=== PATIENT | male | born 1960 | race Caucasian/White ===

== ENCOUNTER → 2019-09-18 | Outpatient (CLI) | payer OTHER | LOC: HYPER 09:14 | DX: T81.31XA Disruption of external operation (surgical) wound, not elsewhere classified, initial encounter (principal); E10.622 Type 1 diabetes mellitus with other skin ulcer; L98.491 Non-pressure chronic ulcer of skin of other sites limited to breakdown of skin; I87.2 Venous insufficiency (chronic) (peripheral); E10.40 Type 1 diabetes mellitus with diabetic neuropathy, unspecified; I48.91 Unspecified atrial fibrillation; E10.22 Type 1 diabetes mellitus with diabetic chronic kidney disease; I13.0 Hypertensive heart and chronic kidney disease with heart failure and stage 1 through stage 4 chronic kidney disease, or unspecified chronic kidney disease; I50.9 Heart failure, unspecified; N18.3 Chronic kidney disease, stage 3 (moderate); F32.9 Major depressive disorder, single episode, unspecified; M10.9 Gout, unspecified; E78.5 Hyperlipidemia, unspecified; M19.90 Unspecified osteoarthritis, unspecified site; G83.9 Paralytic syndrome, unspecified; E66.01 Morbid (severe) obesity due to excess calories; Z68.43 Body mass index [BMI] 50.0-59.9, adult; Y83.8 Other surgical procedures as the cause of abnormal reaction of the patient, or of later complication, without mention of misadventure at the time of the procedure; Y92.89 Other specified places as the place of occurrence of the external cause ==

== ENCOUNTER → 2019-10-02 | Outpatient (CLI) | payer OTHER | LOC: HYPER 08:35 | DX: T81.31XD Disruption of external operation (surgical) wound, not elsewhere classified, subsequent encounter (principal); E10.622 Type 1 diabetes mellitus with other skin ulcer; L98.492 Non-pressure chronic ulcer of skin of other sites with fat layer exposed; L40.50 Arthropathic psoriasis, unspecified; E10.22 Type 1 diabetes mellitus with diabetic chronic kidney disease; I13.0 Hypertensive heart and chronic kidney disease with heart failure and stage 1 through stage 4 chronic kidney disease, or unspecified chronic kidney disease; N18.3 Chronic kidney disease, stage 3 (moderate); I50.9 Heart failure, unspecified; E10.40 Type 1 diabetes mellitus with diabetic neuropathy, unspecified; E78.5 Hyperlipidemia, unspecified; E66.01 Morbid (severe) obesity due to excess calories; E83.59 Other disorders of calcium metabolism; G47.33 Obstructive sleep apnea (adult) (pediatric); I48.91 Unspecified atrial fibrillation; I87.2 Venous insufficiency (chronic) (peripheral); K74.60 Unspecified cirrhosis of liver; M35.3 Polymyalgia rheumatica; M19.90 Unspecified osteoarthritis, unspecified site; M10.9 Gout, unspecified; F32.9 Major depressive disorder, single episode, unspecified; Z68.43 Body mass index [BMI] 50.0-59.9, adult; Y83.8 Other surgical procedures as the cause of abnormal reaction of the patient, or of later complication, without mention of misadventure at the time of the procedure ==

== ENCOUNTER → 2019-10-16 | Outpatient (CLI) | payer OTHER | LOC: HYPER 08:46 | DX: T81.31XD Disruption of external operation (surgical) wound, not elsewhere classified, subsequent encounter (principal); E10.622 Type 1 diabetes mellitus with other skin ulcer; L98.492 Non-pressure chronic ulcer of skin of other sites with fat layer exposed; E66.01 Morbid (severe) obesity due to excess calories; E83.59 Other disorders of calcium metabolism; E83.50 Unspecified disorder of calcium metabolism; E10.40 Type 1 diabetes mellitus with diabetic neuropathy, unspecified; E10.22 Type 1 diabetes mellitus with diabetic chronic kidney disease; I13.0 Hypertensive heart and chronic kidney disease with heart failure and stage 1 through stage 4 chronic kidney disease, or unspecified chronic kidney disease; N18.3 Chronic kidney disease, stage 3 (moderate); I50.9 Heart failure, unspecified; E78.5 Hyperlipidemia, unspecified; G47.33 Obstructive sleep apnea (adult) (pediatric); I48.91 Unspecified atrial fibrillation; K74.60 Unspecified cirrhosis of liver; L40.50 Arthropathic psoriasis, unspecified; M10.9 Gout, unspecified; M35.3 Polymyalgia rheumatica; M19.90 Unspecified osteoarthritis, unspecified site; F32.9 Major depressive disorder, single episode, unspecified; Z68.43 Body mass index [BMI] 50.0-59.9, adult; Y83.8 Other surgical procedures as the cause of abnormal reaction of the patient, or of later complication, without mention of misadventure at the time of the procedure ==

== ENCOUNTER → 2019-10-30 | Outpatient (CLI) | payer OTHER | LOC: HYPER 08:38 | DX: T81.31XD Disruption of external operation (surgical) wound, not elsewhere classified, subsequent encounter (principal); E10.622 Type 1 diabetes mellitus with other skin ulcer; L98.492 Non-pressure chronic ulcer of skin of other sites with fat layer exposed; E10.40 Type 1 diabetes mellitus with diabetic neuropathy, unspecified; E83.59 Other disorders of calcium metabolism; I48.91 Unspecified atrial fibrillation; E10.22 Type 1 diabetes mellitus with diabetic chronic kidney disease; I13.2 Hypertensive heart and chronic kidney disease with heart failure and with stage 5 chronic kidney disease, or end stage renal disease; I50.9 Heart failure, unspecified; N18.3 Chronic kidney disease, stage 3 (moderate); G47.33 Obstructive sleep apnea (adult) (pediatric); L40.50 Arthropathic psoriasis, unspecified; E66.01 Morbid (severe) obesity due to excess calories; F32.9 Major depressive disorder, single episode, unspecified; Z68.43 Body mass index [BMI] 50.0-59.9, adult; Y83.8 Other surgical procedures as the cause of abnormal reaction of the patient, or of later complication, without mention of misadventure at the time of the procedure ==

== ENCOUNTER → 2019-11-13 | Outpatient (CLI) | payer OTHER | LOC: HYPER 08:45 | DX: T81.31XD Disruption of external operation (surgical) wound, not elsewhere classified, subsequent encounter (principal); E10.622 Type 1 diabetes mellitus with other skin ulcer; L98.492 Non-pressure chronic ulcer of skin of other sites with fat layer exposed; I87.2 Venous insufficiency (chronic) (peripheral); E10.40 Type 1 diabetes mellitus with diabetic neuropathy, unspecified; E83.59 Other disorders of calcium metabolism; G83.9 Paralytic syndrome, unspecified; I48.91 Unspecified atrial fibrillation; E10.22 Type 1 diabetes mellitus with diabetic chronic kidney disease; I13.0 Hypertensive heart and chronic kidney disease with heart failure and stage 1 through stage 4 chronic kidney disease, or unspecified chronic kidney disease; I50.9 Heart failure, unspecified; N18.9 Chronic kidney disease, unspecified; M10.9 Gout, unspecified; E78.5 Hyperlipidemia, unspecified; L40.50 Arthropathic psoriasis, unspecified; E66.01 Morbid (severe) obesity due to excess calories; G47.33 Obstructive sleep apnea (adult) (pediatric); F32.9 Major depressive disorder, single episode, unspecified; Z68.43 Body mass index [BMI] 50.0-59.9, adult; Y83.8 Other surgical procedures as the cause of abnormal reaction of the patient, or of later complication, without mention of misadventure at the time of the procedure ==

== ENCOUNTER → 2019-11-27 | Outpatient (CLI) | payer OTHER | LOC: HYPER 08:55 | DX: T81.31XD Disruption of external operation (surgical) wound, not elsewhere classified, subsequent encounter (principal); E10.622 Type 1 diabetes mellitus with other skin ulcer; L98.492 Non-pressure chronic ulcer of skin of other sites with fat layer exposed; S80.811A Abrasion, right lower leg, initial encounter; S51.812D Laceration without foreign body of left forearm, subsequent encounter; E83.59 Other disorders of calcium metabolism; E10.40 Type 1 diabetes mellitus with diabetic neuropathy, unspecified; I87.2 Venous insufficiency (chronic) (peripheral); G83.9 Paralytic syndrome, unspecified; E10.22 Type 1 diabetes mellitus with diabetic chronic kidney disease; I50.9 Heart failure, unspecified; N18.3 Chronic kidney disease, stage 3 (moderate); I48.91 Unspecified atrial fibrillation; M10.9 Gout, unspecified; E78.5 Hyperlipidemia, unspecified; I13.0 Hypertensive heart and chronic kidney disease with heart failure and stage 1 through stage 4 chronic kidney disease, or unspecified chronic kidney disease; L40.50 Arthropathic psoriasis, unspecified; G47.33 Obstructive sleep apnea (adult) (pediatric); E66.01 Morbid (severe) obesity due to excess calories; F32.9 Major depressive disorder, single episode, unspecified; Z68.43 Body mass index [BMI] 50.0-59.9, adult; Y83.8 Other surgical procedures as the cause of abnormal reaction of the patient, or of later complication, without mention of misadventure at the time of the procedure; X58.XXXD Exposure to other specified factors, subsequent encounter; X58.XXXA Exposure to other specified factors, initial encounter; Y93.89 Activity, other specified; Y92.89 Other specified places as the place of occurrence of the external cause; Y99.8 Other external cause status ==

== ENCOUNTER → 2019-12-11 | Outpatient (CLI) | payer OTHER | LOC: HYPER 08:52 | DX: T81.31XD Disruption of external operation (surgical) wound, not elsewhere classified, subsequent encounter (principal); E10.622 Type 1 diabetes mellitus with other skin ulcer; L98.492 Non-pressure chronic ulcer of skin of other sites with fat layer exposed; E83.59 Other disorders of calcium metabolism; L40.50 Arthropathic psoriasis, unspecified; I87.2 Venous insufficiency (chronic) (peripheral); G83.9 Paralytic syndrome, unspecified; I48.91 Unspecified atrial fibrillation; E10.22 Type 1 diabetes mellitus with diabetic chronic kidney disease; I13.0 Hypertensive heart and chronic kidney disease with heart failure and stage 1 through stage 4 chronic kidney disease, or unspecified chronic kidney disease; I50.9 Heart failure, unspecified; N18.3 Chronic kidney disease, stage 3 (moderate); E10.40 Type 1 diabetes mellitus with diabetic neuropathy, unspecified; M10.9 Gout, unspecified; E78.5 Hyperlipidemia, unspecified; K74.60 Unspecified cirrhosis of liver; G47.33 Obstructive sleep apnea (adult) (pediatric); E66.01 Morbid (severe) obesity due to excess calories; F32.9 Major depressive disorder, single episode, unspecified; Z68.43 Body mass index [BMI] 50.0-59.9, adult; Y83.8 Other surgical procedures as the cause of abnormal reaction of the patient, or of later complication, without mention of misadventure at the time of the procedure ==

== ENCOUNTER → 2019-12-27 | Outpatient (CLI) | payer OTHER | LOC: HYPER 08:49 | DX: T81.31XD Disruption of external operation (surgical) wound, not elsewhere classified, subsequent encounter (principal); E10.622 Type 1 diabetes mellitus with other skin ulcer; L98.492 Non-pressure chronic ulcer of skin of other sites with fat layer exposed; L84 Corns and callosities; E10.22 Type 1 diabetes mellitus with diabetic chronic kidney disease; I13.0 Hypertensive heart and chronic kidney disease with heart failure and stage 1 through stage 4 chronic kidney disease, or unspecified chronic kidney disease; N18.3 Chronic kidney disease, stage 3 (moderate); I50.9 Heart failure, unspecified; E10.40 Type 1 diabetes mellitus with diabetic neuropathy, unspecified; E83.59 Other disorders of calcium metabolism; E83.50 Unspecified disorder of calcium metabolism; E66.01 Morbid (severe) obesity due to excess calories; E78.5 Hyperlipidemia, unspecified; I48.91 Unspecified atrial fibrillation; I87.2 Venous insufficiency (chronic) (peripheral); G47.33 Obstructive sleep apnea (adult) (pediatric); L40.50 Arthropathic psoriasis, unspecified; K74.60 Unspecified cirrhosis of liver; M10.9 Gout, unspecified; M35.3 Polymyalgia rheumatica; M19.90 Unspecified osteoarthritis, unspecified site; F32.9 Major depressive disorder, single episode, unspecified; Z68.43 Body mass index [BMI] 50.0-59.9, adult; Y83.8 Other surgical procedures as the cause of abnormal reaction of the patient, or of later complication, without mention of misadventure at the time of the procedure ==

== ENCOUNTER → 2020-01-08 | Outpatient (CLI) | payer OTHER | LOC: HYPER 08:43 | DX: T81.31XD Disruption of external operation (surgical) wound, not elsewhere classified, subsequent encounter (principal); E10.622 Type 1 diabetes mellitus with other skin ulcer; L98.492 Non-pressure chronic ulcer of skin of other sites with fat layer exposed; L84 Corns and callosities; E83.59 Other disorders of calcium metabolism; E83.50 Unspecified disorder of calcium metabolism; E66.01 Morbid (severe) obesity due to excess calories; E10.40 Type 1 diabetes mellitus with diabetic neuropathy, unspecified; E10.22 Type 1 diabetes mellitus with diabetic chronic kidney disease; I13.0 Hypertensive heart and chronic kidney disease with heart failure and stage 1 through stage 4 chronic kidney disease, or unspecified chronic kidney disease; N18.3 Chronic kidney disease, stage 3 (moderate); I50.9 Heart failure, unspecified; I48.91 Unspecified atrial fibrillation; G47.33 Obstructive sleep apnea (adult) (pediatric); E78.5 Hyperlipidemia, unspecified; K74.60 Unspecified cirrhosis of liver; L40.50 Arthropathic psoriasis, unspecified; M10.9 Gout, unspecified; M35.3 Polymyalgia rheumatica; M19.90 Unspecified osteoarthritis, unspecified site; F32.9 Major depressive disorder, single episode, unspecified; Z68.43 Body mass index [BMI] 50.0-59.9, adult; Y83.8 Other surgical procedures as the cause of abnormal reaction of the patient, or of later complication, without mention of misadventure at the time of the procedure ==

== ENCOUNTER → 2020-01-15 | Outpatient (CLI) | payer OTHER | LOC: HYPER 08:52 | DX: T81.31XD Disruption of external operation (surgical) wound, not elsewhere classified, subsequent encounter (principal); E10.622 Type 1 diabetes mellitus with other skin ulcer; L98.492 Non-pressure chronic ulcer of skin of other sites with fat layer exposed; E10.40 Type 1 diabetes mellitus with diabetic neuropathy, unspecified; I87.2 Venous insufficiency (chronic) (peripheral); E83.59 Other disorders of calcium metabolism; L40.50 Arthropathic psoriasis, unspecified; I48.91 Unspecified atrial fibrillation; E10.22 Type 1 diabetes mellitus with diabetic chronic kidney disease; I13.0 Hypertensive heart and chronic kidney disease with heart failure and stage 1 through stage 4 chronic kidney disease, or unspecified chronic kidney disease; I50.9 Heart failure, unspecified; N18.3 Chronic kidney disease, stage 3 (moderate); M10.9 Gout, unspecified; E78.5 Hyperlipidemia, unspecified; E66.01 Morbid (severe) obesity due to excess calories; G47.33 Obstructive sleep apnea (adult) (pediatric); Z68.43 Body mass index [BMI] 50.0-59.9, adult; Y83.8 Other surgical procedures as the cause of abnormal reaction of the patient, or of later complication, without mention of misadventure at the time of the procedure ==

== ENCOUNTER → 2020-01-22 | Outpatient (CLI) | payer OTHER ==
[~2020-01-22] MED LIST: ALLOPURINOL 10100 M3 PO; CARVEDILOL12.5 MG PO; DAKIN'S473 ML TOP; DEMADEX20 MG PO; DULOXETINE HCL60 MG PO; ELIQUIS5 MG PO; FLAGYL500 M1 PO; FLAGYL500 M1 TOP; GENTIAN VIOLET TOP; LANTUS SUBQ; LIDOCAINE 2%2 %/5 GM TOP; LIPITOR 20 MG T20 M1 PO; METOLAZONE 5 MG5 MG PO; NEURONTIN 300M300 M2 PO; NORCO 5-325 TA1 EAC1 PO; PENICILLIN VK500 MG PO; PEPCID AC20 MG PO; PREDNISONE 5 MG5 M1 PO; VASHE WOUND TH475 ML TOP; VSL#3 CAPSULE1 EACH PO
== END ==
LOC: HYPER 09:01
DX: T81.31XD Disruption of external operation (surgical) wound, not elsewhere classified, subsequent encounter (principal); E10.622 Type 1 diabetes mellitus with other skin ulcer; L98.492 Non-pressure chronic ulcer of skin of other sites with fat layer exposed; I87.2 Venous insufficiency (chronic) (peripheral); E83.59 Other disorders of calcium metabolism; E10.40 Type 1 diabetes mellitus with diabetic neuropathy, unspecified; G83.9 Paralytic syndrome, unspecified; I48.91 Unspecified atrial fibrillation; E10.22 Type 1 diabetes mellitus with diabetic chronic kidney disease; I13.0 Hypertensive heart and chronic kidney disease with heart failure and stage 1 through stage 4 chronic kidney disease, or unspecified chronic kidney disease; I50.9 Heart failure, unspecified; N18.3 Chronic kidney disease, stage 3 (moderate); M10.9 Gout, unspecified; E78.5 Hyperlipidemia, unspecified; L40.50 Arthropathic psoriasis, unspecified; E66.01 Morbid (severe) obesity due to excess calories; F32.9 Major depressive disorder, single episode, unspecified; Z68.43 Body mass index [BMI] 50.0-59.9, adult; Y83.8 Other surgical procedures as the cause of abnormal reaction of the patient, or of later complication, without mention of misadventure at the time of the procedure; G47.33 Obstructive sleep apnea (adult) (pediatric)

== ENCOUNTER 2020-01-23 10:49 | Inpatient (IN) | payer OTHER ==
[~2020-01-23] VITALS: Ht 175.3 cm; Wt 154.2 kg
--- NOTE | ~2020-01-23 | O ---
[address] [address] OPERATIVE REPORT Name: VINOD LAW Room #: 357-P ADM IN M.R.#: [id number] Admission: 01/23/20 Attend Phys: Nash Helton MD Discharge: Date of : 64 Report #: [id number] THIS REPORT FOR: cc: FAM - No family physician/PCP RADHA - No family physician/PCP Ion Smith MD ~ CC: Ion Gray [facility] physician/PCP Javi Helton DATE OF SERVICE: 01/25/2020 PROCEDURES PERFORMED: 1. Sharp excisional debridement of many right torso/pannus calciphylaxis wounds with Misonix. 2. Placement of wound VAC. PREOPERATIVE DIAGNOSES: 1. 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 2. Atrial fibrillation, on Eliquis. 3. History of pulmonary embolism. 4. Congestive heart failure. 5. Obstructive sleep apnea. 6. History of morbid obesity. 7. Chronic kidney disease. 8. Diabetes mellitus. 9. Hypertension. POSTOPERATIVE DIAGNOSES: 1. 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 2. Atrial fibrillation, on Eliquis. 3. History of pulmonary embolism. 4. Congestive heart failure. 5. Obstructive sleep apnea. 6. History of morbid obesity. 7. Chronic kidney disease. 8. Diabetes mellitus. 9. Hypertension. SURGEON: Dr. Smith. BRANCH COORDINATOR: None. ANESTHESIA: General. [address] [place] [address] OPERATIVE REPORT Name: VINOD LAW Room #: 357-P [facility] IN .R.#: [id number] Admission: 01/23/20 Attend Phys: Nash Helton MD Discharge: Date of : 64 Report #: [id number] ESTIMATED BLOOD LOSS: Less than 50 mL. URINE OUTPUT: Not measured. COMPLICATIONS: None. SPECIMENS: Right flank wound, sent for histology and for cultures. FINDINGS: All wounds are along the right pannus. 1. Right medial wound is 12 cm x 5 cm x 3 cm, stage 3, down to subcutaneous fat. 2. Pubic wound 4 cm x 2 cm x 0.5 cm, stage 3, down to subcutaneous fat. 3. Medial wound was 8.5 cm x 4 cm x 1.5 cm, stage 3, down to subcutaneous fat. 4. Right lateral wound 15 cm x 4 cm x 0.5 cm, stage 3, down to subcutaneous fat. 5. Right lateral cephalad wound is 5 cm x 1.5 cm x 0.5 cm, stage 3, down to subcutaneous fat. INDICATIONS FOR PROCEDURE: The patient is a 59-year-old gentleman with many chronic calciphylaxis wounds along his torso. The patient had been seeing the wound clinic. The patient was admitted for wound debridement and possible grafting. The risks, benefits and alternatives of the procedure were discussed with the patient. The risks discussed included but were not limited to the risk of bleeding, infection, worsening of the wound. He understood the wound to be larger likely, understood that we might possibly graft the wounds. He understood that there will be a wound VAC afterwards. He understood the risk of anesthesia including heart, lung and neurologic type complications, and the risk of . The patient had the opportunity to ask questions. All questions were answered to the best of my ability. At the end of the discussion, he wished to proceed with surgery. DESCRIPTION OF PROCEDURE: After informed consent was obtained as above, the patient was taken to the operating room and placed in supine position. General anesthesia was induced. Preprocedure antibiotics were administered. His anterior and right lateral abdomen and flank were prepped and draped in the usual sterile fashion. A timeout was performed. Electrocautery was used to carve off the thick dark eschar along the right flank lateral wound. The Misonix wound device was then used to debride all the soft necrotic nonviable tissue of all wound beds. Hemostasis was obtained using a mixture of electrocautery as well as a Vicryl suture. The patient was meticulously inspected, the wound beds were measured. The hemostasis was obtained. The wound VAC was then applied in the standard fashion. There was a good seal [address] [address] OPERATIVE REPORT Name: LAWVINOD Room #: 357-P [facility] IN M.R.#: [id number] Admission: 01/23/20 Attend Phys: Nash Helton MD Discharge: Date of : 64 Report #: [id number] present at the end of the procedure. The patient tolerated the procedure well. There were no adverse events throughout the course of the procedure. By: [id number] Ion Smith MD /nt
[2020-01-23 10:51] VITALS: BP 128/66
[2020-01-23 11:37] LABS: ABSOLUTE NEUTROPHILS 8.7 thou/uL (1.4-8.2); BASOPHILS 0.6 % (0.0-2.0); HEMATOCRIT 26.5 % (42.0-52.0); HEMOGLOBIN 8.9 gm/dL (14.0-18.0); LYMPHOCYTES 9.4 % (24.0-44.0); MCH 32.6 pg (26.0-34.0); MCHC 33.4 g/dL (28.0-37.0); MCV 97.4 fL (80.0-100.0); MONOCYTES 9.7 % (1.0-8.0); PLATELET COUNT 182 thou/uL (150-400); POLYS 79.3 % (36.0-66.0); RBC 2.72 mil/uL (4.50-6.00); RDW 15.1 % (10.5-14.5)
[2020-01-23 12:01] LABS: URINE BILIRUBIN NEGATIVE (Negative); URINE BLOOD TRACE (Negative); URINE CLARITY CLEAR; URINE COLOR YELLOW; URINE GLUCOSE-RANDOM* NEGATIVE (Negative); URINE KETONES NEGATIVE (Negative); URINE LEUKOCYTES-REFLEX TRACE (Negative); URINE NITRITE-REFLEX NEGATIVE (Negative); URINE PROTEIN (DIPSTICK) NEGATIVE (Negative); URINE UROBILINOGEN 0.2 E.U./dl (0.2-1.0)
[2020-01-23 12:03] LABS: ANION GAP 7 mmol/L (7-16); BUN 70 mg/dL (7-18); CALCIUM 8.8 mg/dL (8.5-10.1); CHLORIDE 95 mmol/L (98-107); CO2 29 mmol/L (21-32); CREATININE 1.5 mg/dL (0.7-1.3); GLUCOSE 197 mg/dL (74-106); POTASSIUM 3.1 mmol/L (3.5-5.1); SODIUM 131 mmol/L (136-145)
[2020-01-23 12:05] LABS: ALBUMIN 2.4 g/dL (3.4-5.0); DIRECT BILIRUBIN < 0.1 mg/dL (<0.1-0.2); SGOT 35 U/L (15-37); SGPT 28 U/L (30-65); TOTAL BILIRUBIN 0.5 mg/dL (<0.1-1.0); TOTAL PROTEIN 7.6 g/dL (6.4-8.2)
[2020-01-23 14:15] VITALS: BP 100/77
[2020-01-23 16:13] VITALS: BP 122/58
[2020-01-23 16:37] VITALS: BP 116/98
[2020-01-23] MEDS ORDERED: CARVEDILOL12.5 MG PO (18:21)
[2020-01-23] MEDS ORDERED: VSL#3 CAPSULE1 EACH PO (18:22)
[2020-01-23] MEDS ORDERED: LIPITOR 20 MG T20 M1 PO (18:25)
[2020-01-23] MEDS ORDERED: PEPCID AC20 MG PO (18:27)
[2020-01-23] MEDS ORDERED: ALLOPURINOL 10100 M3 PO (18:28)
[2020-01-23] MEDS ORDERED: METOLAZONE 5 MG5 MG PO (18:29)
[2020-01-23] MEDS ORDERED: GENTIAN VIOLET TOP (18:32)
[2020-01-23] MEDS ORDERED: DAKIN'S473 ML TOP (18:35)
[2020-01-23] MEDS ORDERED: FLAGYL500 M1 TOP (18:39)
[2020-01-23] MEDS ORDERED: VASHE WOUND TH475 ML TOP (18:42)
[2020-01-23] MEDS ORDERED: FLAGYL500 M1 PO ×2 (18:44→18:47)
[2020-01-23] MEDS ORDERED: PENICILLIN VK500 MG PO ×2 (18:51→18:53)
[2020-01-23] MEDS ORDERED: LIDOCAINE 2%2 %/5 GM TOP (19:29)
[2020-01-23] MEDS ORDERED: NORCO 5-325 TA1 EAC1 PO (19:30)
[2020-01-23] MEDS ORDERED: PREDNISONE 5 MG5 M1 PO (19:35)
[2020-01-23] MEDS ORDERED: DULOXETINE HCL60 MG PO (19:36)
[2020-01-23] MEDS ORDERED: DEMADEX20 MG PO (19:38)
[2020-01-23] MEDS ORDERED: NEURONTIN 300M300 M2 PO (19:39)
[2020-01-23] MEDS ORDERED: LANTUS SUBQ (19:43)
[2020-01-23] MEDS ORDERED: ELIQUIS5 MG PO (19:45)
--- NOTE | 2020-01-23 19:50 | NUR ---
1800 PT ADMITTED TO 3WEST ROOM 357, PT ALERT AND ORIENTED X4, DENIEA NAUSEA, VOMITTING AND CHEST PAIN. PT COMPLAIN OF RIGHT SIDE LOWER ABD PAIN, PAIN MED GIVEN PER ORDER. PT ORIENTED TO ROOM, FALL CONSENT SIGNED. PT ADMISSION PAPER WORK COMPLETED. PT STATES NOT KNOWING EXACTLY WHAT MEDICATION HE TAKES AND AND THE WOUND DOCTOR SHOULD HAVE A COPY. DR. NUR IN ROOM AND HE PROVIDED PT UPDATED MEDICATION LIST. LIST ENTERED AND REVIEWED. VITALS SIGNS COMPLETED. BLOOD SUGAR WITHIN NORMAL LIMIT NO INSULIN REQUIRED. PT DENIES ANY NEEDS AT THE MOMENT. REPORT GIVEN TO GRACIE GAUTHIER NURSE.
[2020-01-23 20:53] VITALS: BP 101/55
[2020-01-24 03:49] VITALS: BP 140/82
--- NOTE | 2020-01-24 04:29 | NUR ---
ASSUMED CARE OF PATIENT AT 1900. PATIENT ON ENHANCED PRECAUTIONS FOR PENDING COVID RESULTS. PATIENT UP AD JOHNATHAN ON 3L ON OXYGEN VIA NC, WHICH PATIENT TYPICALLY WEARS AT HOME. DOCUMENTED WOUNDS AND COMPLETED WOUND CARE ON MULTIPLE ABDOMINAL WOUNDS ORDERED. PATIENT REPORTED PAIN IN ABDOMEN FREQUENTLY AND REQUEST PRN NORCO APPROXIMATELY EVERY 4 TO 5 HOURS. ADMINISTERED NORCO ORDERED.
[2020-01-24 06:29] LABS: ABSOLUTE NEUTROPHILS 7.3 thou/uL (1.4-8.2); BASOPHILS 0.5 % (0.0-2.0); EOSINOPHILS 1.7 % (0.0-3.0); HEMATOCRIT 26.2 % (42.0-52.0); HEMOGLOBIN 8.9 gm/dL (14.0-18.0); LYMPHOCYTES 10.5 % (24.0-44.0); MCH 32.9 pg (26.0-34.0); MCV 96.9 fL (80.0-100.0); MONOCYTES 9.2 % (1.0-8.0); PLATELET COUNT 172 thou/uL (150-400); POLYS 78.1 % (36.0-66.0); RDW 15.1 % (10.5-14.5); WBC 9.3 thou/uL (4.0-11.0)
[2020-01-24 06:45] LABS: CALCIUM 8.8 mg/dL (8.5-10.1); CREATININE 1.2 mg/dL (0.7-1.3); MAGNESIUM 1.7 mg/dL (1.8-2.4); POTASSIUM 3.5 mmol/L (3.5-5.1)
[2020-01-24 06:50] LABS: % SATURATION 13 % (20-39); IRON 24 ug/dL (65-175); TIBC 188 ug/dL (250-450)
[2020-01-24 06:59] LABS: TSH 2.534 uIU/mL (0.358-3.740)
[2020-01-24 08:00] VITALS: BP 152/92
--- NOTE | 2020-01-24 09:07 | NUR ---
ASSESSMENT: CM REVIEWED CHART AND SPOKE WITH PATIENT VIA THE PHONE. PT WAS ADMITTED DUE TO NON HEALING ABDOMINAL WOUNDS. PT REPORTS THAT HE LIVES IN AN APT WITH HIS BROTHER. PT IS CURRENTLY ON SERVICES WITH [facility] . CM NOTIFIED THEM OF PATIENTS ADMISSION AND FAXED CLINICAL. PT REPORTS THAT HE AMBULATES INDEPENDENTLY BUT DOES HAVE A CANE AT HOME. PT REPORTS THAT HE ALSO HAS OXYGEN ARRANGED AT HOME AND IS ON 3L AT HIS BASELINE. OXYGEN IS SUPPLIED THROUGH [facility]. PT ALSO HAS A BIPAP AT HOME. PT REPORTS HE HAS NO STEPS TO ENTER HIS APT. PT REPORTS HAVING A SHOWER CHAIR BUT STATES HE IS PRETTY INDEPENDENT. PT IS IN ISOLATION AND BEING TESTED FOR COVID 19-RESULTS ARE PENDING. PENDING RESULTS OF COVID PT IS TO HAVE AN EXCISIONAL DEBRIDEMENT. CM WILL CONTINUE TO FOLLOW TO ASSIST NEEDED.
--- NOTE | 2020-01-24 10:44 | NUR ---
Assess due to BMI 50.2, extreme class III obesity. Admitted with abdominal wall and perineal wounds; calciphylaxis. NPO for excisional debridement. Hx of CHF, DM. BG 117-176, BUN 45. Pending COVID 19 r/o. Recommend advance diet when medically able to carb controlled, 2g Na. Available if pt has questions regarding diet. Otherwise, encourage high protein food choices and pt is considered low nutrition risk
--- NOTE | 2020-01-24 15:10 | HC ---
[facility] [place] [address] CONSULTATION Name: VINOD LAW Room #: 357-P ADM IN M.R.#: [id number] Admission: 01/23/20 Attend Phys: Nash Helton MD Discharge: Date of : 64 Report #: [id number] THIS REPORT FOR: cc: FAM - No family physician/PCP RADHA - No family physician/PCP Ion Smith MD ~ CC: Ion Gray [facility] physician/PCP Javi Helton DATE OF SERVICE: 01/23/2020 REASON FOR CONSULTATION: Wounds. ASSESSMENT: Nonoliguric calciphylaxis wounds, torso. RECOMMENDATIONS: 1. Thank you for the consultation. I will follow along. 2. The patient's Eliquis has been held since Wednesday, per his verbal report. 3. Planning for sharp excisional debridement of wounds tomorrow with COVID results return. We will likely place a skin substitute graft and wound VAC as well. HISTORY OF PRESENT ILLNESS: The patient is a 59-year-old gentleman who has had torso wounds for approximately 1 year, they have been found to be due to nonoliguric calciphylaxis. The patient does have CKD; however, this has improved significantly. The patient has many other medical comorbidities. Some of the wounds have improved; however, some of the wounds have not, they are painful. He is ready to have been debrided. He has had cultures of them that have grown out Enterococcus in the past. PAST MEDICAL HISTORY: 1. Pulmonary embolism. 2. Atrial fibrillation, on Eliquis. 3. Congestive heart failure, had an echo within the last year per patient. 4. Obstructive sleep apnea. 5. Morbid obesity. 6. Chronic kidney disease. 7. Diabetes mellitus. 8. Hypertension. 9. Colon polyps. PAST SURGICAL HISTORY: 1. Left lower quadrant wound debridement. [facility] [address] [place] [address] CONSULTATION Name: LAWVINOD Room #: 357-P [facility] IN Daniella.#: [id number] Admission: 01/23/20 Attend Phys: Nash Helton MD Discharge: Date of : 64 Report #: [id number] 2. Colonoscopy. 3. Toe foreign body removal. SOCIAL HISTORY: Drinks 1 beer per week. Denies tobacco use. Denies recreational drug use. He is retired. He does job coaching youth sports. FAMILY HISTORY: Mother had breast cancer. Maternal grandfather had cancer of unknown type. REVIEW OF SYSTEMS: CONSTITUTIONAL: No fever. No chills. HEENT: Denies blurring of vision, double vision, headaches, hearing loss, sinus drainage or sore throat. Denies blurring of vision, double vision, headaches, hearing loss, sinus drainage or sore throat. CARDIOVASCULAR: See above and below. RESPIRATORY: See above and below. GASTROINTESTINAL: No nausea. No vomiting. No diarrhea. No Heartburn. No nausea. No vomiting. No diarrhea. No Heartburn. GENITOURINARY: See above and below. MUSCULOSKELETAL: No joint pain. No muscle pain. NEUROLOGICAL: Denies tremor, stroke or seizure. Denies tremor, stroke or seizure. HEMATOLOGIC / LYMPHATICS: Denies easy bruising, easy bleeding or enlarged lymph nodes. SKIN: See above and below. ENDOCRINE: No heat or cold intolerance PSYCHIATRIC: Denies depression, anxiety, or schizophrenia. PHYSICAL EXAMINATION: VITAL SIGNS: Temperature 37, pulse 100, BP 105/38, pulse oximetry 99% on room air. GENERAL: No apparent distress, alert and oriented x3. HEENT: PERRLA, EOMI, MMM, NCAT NECK: Supple. No LAD CARDIOVASCULAR: Regular rhythm and rate. Hemodynamically stable. Normal capillary refill. Regular rhythm and rate. Hemodynamically stable. Normal capillary refill. PULMONARY: Nonlabored. Clear to auscultation bilaterally ABDOMEN: Soft, morbidly obese, nontender. The patient has chronic wounds along his pannus from the left flank scattered all the way around towards the right flank. Starting in the left flank, he has a dry eschar wound approximately 3 x 5 cm. On the left anterior aspect of his pannus, he has a chronic appearing wound that has been previously debrided that has 1 x 1 cm dry eschar. On his right anterior, he has a large stage 3 white appearing ulcerative wound, he has a second one very similar just lateral to this and a third one lateral to that along his right flank. [address] [address] CONSULTATION Name: VINOD LAW Isidoro Room #: 357-P [facility] IN M.R.#: [id number] Admission: 01/23/20 Attend Phys: Nash Helton MD Discharge: Date of : 64 Report #: [id number] EXTREMITIES: Positive lower extremity edema with chronic skin changes consistent with hemosiderin deposition. SKIN: No rashes or bruises. PSYCHIATRIC: Normal mood and affect Normal mood and affect NEUROLOGICAL: Grossly intact. CN II-XII grossly intact. MUSCULOSKELETAL: 5/5 strength in upper extremities and lower extremities bilaterally LYMPHATICS: No cervical, inguinal, or supraclavicular lymphadenopathy. LABORATORY DATA: White blood count 11, hemoglobin 8.9, hematocrit 26.5, and platelets 182. Sodium 131, potassium 3.1, creatinine 1.5. Albumin 2.4. <ELECTRONICALLY SIGNED> By: Ion Smith MD 01/24/20 1510 1350 1422 Ion Smith MD /nt
--- NOTE | 2020-01-24 17:45 | NUR ---
VSS-AFEBRILE. LUNGS CLEAR/DIMINISHED IN ALL ANNA BILATERALLY. WEARS CPAP WITH 3L O2 BLEED WHEN NAPPING AND AT HS. SURGICAL DEBRIDEMENT OF ABDOMINAL WOUNDS RESCHEDULED FOR TOMORROW 01/25/[address] CHINO. DECLINED WOUND CARE FOR DAY SHIFT, PREFERS IT LATER, BEFORE BED. PAIN WELL CONTROLLED WITH IV AND PO PAIN MEDICATION. NO REPORTED N/V. AWAITING COVID 19 TEST RESULTS. OOB AD JOHNATHAN-STEADY ON FEET. CALLS APPROPRIATELY FOR ANY NEEDED ASSISTANCE.
[2020-01-24 19:27] VITALS: BP 110/71
--- NOTE | 2020-01-24 23:04 | NUR ---
ASSSUMED PT CARE AROUND 1930. AXOX4. INDEPENDENT WITH ADLs. WOUND CARE TO ABD GEN COMPLETED PER PT REQUEST. STOOL SAMPLE COLLECTED AND SENT DOWN. VSS. NO S/S ACUTE DISTRESS NOTED OR REPORTED AT THIS TIME. CARE TRANSFERRED TO ANOTHER RN.
--- NOTE | 2020-01-25 03:31 | NUR ---
Assumed pt care at 2300. Pt's A/OX4. Up ad cee in room w/o problems. VSS. Pt's covid-19 results back and negative, Kalyn LAMINATION BUILDER notified about results and if need to order a second test which she indicated she didn't think it was needed at this time but will follow-up with MD this morning. Pt updated about results and very happy. Pt medicated for pain PO/IV with relief reported. Has been NPO since midnight for possible debridement today. Remains on enhanced isolation. Calls approp for help. Resting quietly w/o any distress reported, CPAP in place. Will continue to monitor pt.
[2020-01-25 03:48] VITALS: BP 148/58
[2020-01-25 05:22] LABS: ALBUMIN 2.3 g/dL (3.4-5.0); CALCIUM 8.8 mg/dL (8.5-10.1); MAGNESIUM 1.6 mg/dL (1.8-2.4); POTASSIUM 4.1 mmol/L (3.5-5.1); TOTAL BILIRUBIN 0.8 mg/dL (<0.1-1.0); TOTAL PROTEIN 7.3 g/dL (6.4-8.2)
[2020-01-25 05:41] LABS: ABSOLUTE NEUTROPHILS 7.4 thou/uL (1.4-8.2); BASOPHILS 0.6 % (0.0-2.0); HEMATOCRIT 25.9 % (42.0-52.0); HEMOGLOBIN 8.8 gm/dL (14.0-18.0); LYMPHOCYTES 9.7 % (24.0-44.0); MCH 32.9 pg (26.0-34.0); MCHC 33.8 g/dL (28.0-37.0); MCV 97.5 fL (80.0-100.0); MONOCYTES 10.8 % (1.0-8.0); PLATELET COUNT 154 thou/uL (150-400); POLYS 76.9 % (36.0-66.0); RBC 2.66 mil/uL (4.50-6.00); WBC 9.7 thou/uL (4.0-11.0)
[2020-01-25 06:36] VITALS: BP 132/77
--- NOTE | 2020-01-25 13:42 | NUR ---
ON-GOING ASSESSMENT: PATIENTS COVID TESTING CAME BACK NEGATIVE. PLANS ARE FOR PATIENT TO GET EXCISIONAL DEBRIDEMENT TODAY WITH PLACEMENT OF WOUND VAC. CM WILL CONTINUE TO FOLLOW TO ASSIST NEEDED.
[2020-01-25 18:37] VITALS: BP 122/69
--- NOTE | 2020-01-25 18:51 | NUR ---
Assumed pt care this am, pt was taken down to the OR for debridement at shift change. 2nd covid results are still pending, Wound vac was placed and seen by wound care team, previna on the torso and pubic area c/d/i. VS stable. pain is managed with medication. Blood sugar checks done with insulin given as per emar. Pt is up ad cee, POC followed witn no signs or verbalZATIONS OF DISTRESS NOTED.
[2020-01-25 20:00] VITALS: BP 126/73
[2020-01-26 04:11] VITALS: BP 116/71
--- NOTE | 2020-01-26 04:35 | NUR ---
ASSUMED PT CARE 01/25 AT 0200. PT SLEEPING WITH BIPAP ON
--- NOTE | 2020-01-26 07:27 | NUR ---
progress pt a/o x4 up with sba. wound vac in place to right abdomen and right flank at 20 cm of suction scant amount of drainage noted. voiding qs, dressing to left abdomen loose reinforced had moderate amount of fresh bloody drainage. denies pain or need of pain medication.
[2020-01-26 08:48] VITALS: BP 130/75
[2020-01-26 13:58] VITALS: BP 130/75
--- NOTE | 2020-01-26 14:04 | NUR ---
LIZ reviewed chart and spoke with nursing and attending physician. Pt is progressing towards goals for discharge. Pt remains in Enhanced Isolation to r/o COVID-19. First test was negative. Pt has wound vac in place. LIZ spoke with pt via phone to provide update and discuss discharge plan. Pt states that he does not want to go anywhere for post-acute placement due to COVID-19. Pt would prefer to go home and resume services with [facility]. Discharge anticipated for tomorrow. LIZ contacted [facility], who will order home wound vac. LIZ faxed updates to HH and spoke with Chloé in intake to notify of weekend discharge. Finalized discharge orders/summary will need to be faxed when available. Pt's family will provide transportation home. Contact info for HH placed in pt's discharge summary. LIZ is available to assist as needed. IESHA --
--- NOTE | 2020-01-26 15:26 | NUR ---
approved discontinuation of enhanced precautions and approved transfer off 3W.
[2020-01-26 16:32] VITALS: BP 151/75
--- NOTE | 2020-01-26 17:08 | NUR ---
ASSUMED PATIENT CARE AT 0700. A/O X4. DRESSING CHARGED PER ORDER. RIGHT ABD WAC INTACT. PATIENT ON HOME BIPAP ALLTHE TIME WITH 3L 02. SLOWLY TOWARDS POC GOALS. TRANSFER PATIENT TO [facility] AT 1600
[2020-01-26 19:15] VITALS: BP 119/70
[2020-01-27 03:33] VITALS: BP 63/52; BP 93/52
--- NOTE | 2020-01-27 04:41 | NUR ---
RECIEVED CARE OF THIS PATIENT AT 1900. PATIENT ALERT AND ORIENTED X4. PATIENT NOT A FALL RISK, UP AD JOHNATHAN. ACCUCHECK WAS 119, RECIEVED NO COVERAGE. IV IN RAC WITH FLUIDS INFUSING. WOUND VAC ON ABD AT 125 CONT. USES BIPAP AT HS. LOWER EXT DARK COLORED AND EDEMATOUS. C/O PAIN, MED GIVEN. SLEPT MOST OF NIGHT.
[2020-01-27 08:48] VITALS: BP 129/78
--- NOTE | 2020-01-27 11:28 | NUR ---
Assumed care of pt at 0700. Pt a&ox4. Up ad cee in the room. Wound vac removed by wound physician and wet to dry dressing applied. Pain controlled with prn pain meds. Pt will possibly discharge home with HH today. Awating on hospital doctor to see patient. Call light within reach. Will continue to monitor.
[2020-01-27 17:56] VITALS: BP 122/76
[2020-01-27 19:00] VITALS: BP 126/73
[2020-01-28 03:30] VITALS: BP 103/54
--- NOTE | 2020-01-28 03:59 | NUR ---
PT AMBULATING TO BATHROOM INDEPENDENTLY AND IS TOLERATING FAIR. PERCOCET PROVIDING PAIN RELIEF. RESTING COMFORTABLY. NO NEEDS VOICED. CALL LIGHT WITHIN REACH. FREQUENT OBSERVATION.
[2020-01-28 05:34] LABS: ABSOLUTE NEUTROPHILS 5.8 thou/uL (1.4-8.2); BASOPHILS 0.7 % (0.0-2.0); EOSINOPHILS 2.1 % (0.0-3.0); HEMATOCRIT 24.6 % (42.0-52.0); HEMOGLOBIN 8.2 gm/dL (14.0-18.0); LYMPHOCYTES 12.8 % (24.0-44.0); MCH 32.7 pg (26.0-34.0); MCHC 33.3 g/dL (28.0-37.0); MONOCYTES 10.9 % (1.0-8.0); PLATELET COUNT 143 thou/uL (150-400); POLYS 73.5 % (36.0-66.0); RBC 2.51 mil/uL (4.50-6.00); RDW 14.9 % (10.5-14.5); WBC 7.8 thou/uL (4.0-11.0)
[2020-01-28 05:58] LABS: ALBUMIN 2.2 g/dL (3.4-5.0); CALCIUM 8.9 mg/dL (8.5-10.1); CREATININE 1.1 mg/dL (0.7-1.3); MAGNESIUM 1.6 mg/dL (1.8-2.4); PHOSPHORUS 3.1 mg/dL (2.5-4.9); POTASSIUM 3.9 mmol/L (3.5-5.1); TOTAL BILIRUBIN 0.6 mg/dL (<0.1-1.0); TOTAL PROTEIN 7.3 g/dL (6.4-8.2)
[2020-01-28 08:53] VITALS: BP 125/69
[2020-01-28] MEDS ORDERED: LEVAQUIN 500 M500 M1 PO (14:43)
--- NOTE | 2020-01-28 14:44 | NUR ---
PT CARE ASSUMED AT 0700. A&Ox4. PAIN MANAGED WELL WITH PAIN MEDICATION. DRESSING CHANGE PERFORMED BY . MAG TRENDING DOWN THIS AM 1.6 PER MD ONETIME DOSE OF MAGNESIUM GIVEN 1.7 AT RECHECK. CPAP IN ROOM BELONGS TO PATIENT. ON 3L FROM HOME DURING THE DAY. DAILY WEIGHT (CHF). IV PATENT WITH NO REDNESS OR EDEMA. FLUIDS INFUSING. UP INDEPENDENTLY IN THE ROOM. PT DISCHARGING WITH HOMEHEALTH. SUMMARY AND DISCHARGE ORDERS FAXED. CALL ROSA KIM. WILL CONTINUE TO MONITOR
[2020-01-28] MEDS ORDERED: LANTUS SUBQ (14:49)
--- NOTE | 2020-01-29 08:53 | EKG ---
[facility] [place] [address] ELECTROCARDIOGRAM REPORT Name: VINOD LAW Room #: 441-P DIS IN M.R.#: [id number] Admission: 01/23/20 Attend Phys: Nash Helton MD Discharge: 01/28/20 Date of : 64 Report #: [id number] THIS REPORT FOR: cc: RADHA - Estefanía family physician/PCP FAM - No family physician/PCP Lester Fields MD [facility] THIS REPORT FOR: //name// [facility] Test Date: 2020-01-26 Test Time: 14:45:52 Pat Name: VINOD LAW Department: Room: [facility] Gender: M Peanut Picker: Juanita SEAY : 1960 Requested By: Eliu Gray Order Number: [id number] MD: Lester Fields Measurements Intervals [place] Rate: 100 P: [place]: QRS: 38 QRSD: 91 T: 30 QT: 347 QTc: 448 Interpretive Statements Atrial fibrillation RSR' in V1 or V2, probably normal variant Baseline wander in lead(s) V2 No previous ECG available for comparison Electronically Signed On 01-29-2020 8:51:43 CDT by Lester Fields [email or web address] <ELECTRONICALLY SIGNED> By: Lester Fields MD, [facility] 01/29/20 0851 1445 1445 Lester Fields MD, [facility] /EPI
--- NOTE | 2020-01-29 09:33 | PATH ---
[facility] [address] [place] [address] PATHOLOGY RPT PROCEDURE Name: JAMES LAW Isidoro Room #: 441-P DIS IN M.R.#: [id number] Admission: 01/23/20 Date of : 64 Discharge: 01/28/20 Report #: [id number] Path Case #: [id number] [facility] Accession Number: [id number] . 01 Material submitted: . body - DEBRIDEMENT RIGHT PANNUS. Modifiers: right . 01 Clinical history: . non healing wound . 02 Diagnosis: Skin and subcutaneous tissue, right pannus, debridement: - Marked acute inflammation associated with fibrinoid degeneration as well as necrosis. (IUV/db; 01/26/2020) LBQ 01/26/2020 1235 Local . 02 Electronically signed: . Callie Clemons MD, Pathologist NPI- [id number] . 01 Gross description: . The specimen is received in formalin, labeled "Law, James, debridement right pannus" and consists of necrotic green rogers skin with underlying tissue measuring 5.2 x 2.3 x 0.4 cm. Line Out Worker sections are submitted in A1. (CLARISSA; 01/25/2020) JFQ/JFQ 01/25/2020 1544 Local . 02 Pathologist provided ICD-10: M79.3 . 02 CPT . 440699 Specimen Comment: A courtesy copy of this report has been sent to [phone] Specimen Comment: Report sent to Specimen Comment: A duplicate report has been generated due to demographic updates. Performed at: [address] [facility], [place] [id number] MD Fab Harry MD Phone: [phone] Performed at: [address] [facility] [id number] MD Callie Clemons MD Phone: [phone]
--- NOTE | 2020-01-29 15:41 | HC ---
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 HISTORY OF PRESENT ILLNESS: This is a 59-year-old male patient with whom I am familiar from outpatient evaluation. He has had ongoing ulcerations of his abdominal wall. He has nonoliguric renal insufficiency. He was noted to have a diagnosis of calciphylaxis from [facility]. He was originally referred for possible therapy with maggots for debridement; however, we have not chosen that path. He, however, has recently developed increasing swelling, drainage and redness to the area. He has Enterococcus on culture, sensitive to penicillin, and vancomycin. He has failed outpatient therapy with oral penicillin with increasing redness despite being compliant with medications. We have discussed intravenous antibiotic therapy as well as a possibility of surgical debridement. PAST MEDICAL HISTORY: Significant for type 2 diabetes mellitus, morbid obesity, atrial fibrillation, congestive heart failure, pulmonary emboli and recent calciphylaxis. SOCIAL HISTORY: The patient drinks a beer once a week. Denies tobacco use. FAMILY HISTORY: Noncontributory. MEDICATIONS: Include carvedilol, Lipitor, famotidine, allopurinol, metolazone, gentian duncan, metronidazole, VK penicillin. ALLERGIES: No known drug allergies. FAMILY HISTORY: Noncontributory. REVIEW OF SYSTEMS: CONSTITUTIONAL: The patient denies fever, chills or weight loss. [facility] [address] [place] [address] CONSULTATION Name: VINOD LAW Room #: 441-P [facility] IN [facility].#: [id number] Admission: 01/23/20 Attend Phys: Nash Helton MD Discharge: 01/28/20 Date of : 64 Report #: [id number] NEUROLOGICAL: The patient denies focal weakness, numbness or tingling. EYES: The patient denies visual changes, redness, or drainage. ENT: The patient denies earache, nasal drainage, sore throat. CARDIOVASCULAR: The patient denies chest pain, palpitations or diaphoresis. PULMONARY: The patient denies cough or shortness of breath. GASTROINTESTINAL: The patient denies nausea, vomiting, diarrhea or abdominal pain. ORTHOPEDIC: The patient denies pain, swelling and limitation of his extremities. SKIN: The patient has ulcerations across the pannus and into the perineal region bilaterally, more so on the right than on the left. Other systems in a 14-point review of systems are negative. PHYSICAL EXAMINATION: VITAL SIGNS: At this time include temperature 98.6, pulse 86, respiratory rate 16, and blood pressure 116/98. GENERAL: This is a well-developed, well-nourished male patient who appears to be in minimal distress. HEENT: Head normocephalic. Nose and throat clear. NECK: Supple. LUNGS: Clear. ABDOMEN: Obese, soft. There is tenderness along the right and left flank areas. There are multiple ulcerations. There is a tube in the flank area and pannus region in various stages of healing. There is some dry eschar on the left side, the right side is more slough filled with some drainage. There is significant surrounding erythema, warmth and induration across the entire abdominal wall, small ulceration on the perineal region is noted as well. NEUROLOGIC: The patient is alert and oriented and appropriate. EXTREMITIES: Lower extremities without clubbing or cyanosis. CLINICAL IMPRESSION: 1. Multiple cutaneous ulcerations to the abdominal wall with reported history of calciphylaxis. 2. Type 2 diabetes mellitus. 3. Morbid obesity. 4. History of congestive heart failure. LABORATORY DATA: Includes white blood cell count 11.0 with a hemoglobin of 8.9, hematocrit 26.5. Sodium 131, potassium 3.1, chloride 95, CO2 of 29, BUN 70, creatinine 1.5, glucose 197, AST is 35, ALT is 28, alkaline phosphatase is 140, and albumin is 2.4. RECOMMENDATIONS: At this point in time, the patient will be seen by Infectious Disease. He will be started on intravenous vancomycin. We have consulted General Surgery for Misonix debridement and consideration of a skin stab, we may use a wound VAC following surgery. The goal will be then to return to the [address] [address] CONSULTATION Name: VINOD LAW Room #: 441-P [facility] IN M.R.#: [id number] Admission: 01/23/20 Attend Phys: Nash Helton MD Discharge: 01/28/20 Date of : 64 Report #: [id number] outpatient setting for continued management. He has been receiving sodium thiosulfate, which we could consider is in addition here. I appreciate being asked to see him in consultation. We will follow closely here in the hospital. <ELECTRONICALLY SIGNED> By: Javi Valdivia MD 01/29/20 1541 1820 22 Javi Valdivia MD /nt
== END 2020-01-28 16:35 | disposition home health service (06) | DRG 579 ==
LOC: ER 10:49 → 3W 13:36 → EROBS 13:36 → 3W 16:13 → 4S 01-26 16:39
PROVIDERS: Emergency Medicine; Internal Medicine; ADMIT Internal Medicine
PROC: 5A09357 Assistance with Respiratory Ventilation, Less than 24 Consecutive Hours, Continuous Positive Airway Pressure (ICD-10-PCS; 2020-01-24)
PROC: 5A09357 Assistance with Respiratory Ventilation, Less than 24 Consecutive Hours, Continuous Positive Airway Pressure (ICD-10-PCS; principal; 2020-01-25)
PROC: 0JD80ZZ Extraction of Abdomen Subcutaneous Tissue and Fascia, Open Approach (ICD-10-PCS; principal; 2020-01-25)
PROC: 5A09357 Assistance with Respiratory Ventilation, Less than 24 Consecutive Hours, Continuous Positive Airway Pressure (ICD-10-PCS; 2020-01-26)
PROC: 5A09357 Assistance with Respiratory Ventilation, Less than 24 Consecutive Hours, Continuous Positive Airway Pressure (ICD-10-PCS; 2020-01-27)
DX: L03.311 Cellulitis of abdominal wall (principal); N17.0 Acute kidney failure with tubular necrosis; E43 Unspecified severe protein-calorie malnutrition; J18.9 Pneumonia, unspecified organism; E87.2 Acidosis; Z68.43 Body mass index [BMI] 50.0-59.9, adult; I13.0 Hypertensive heart and chronic kidney disease with heart failure and stage 1 through stage 4 chronic kidney disease, or unspecified chronic kidney disease; E66.2 Morbid (severe) obesity with alveolar hypoventilation; E83.59 Other disorders of calcium metabolism; L03.315 Cellulitis of perineum; L98.499 Non-pressure chronic ulcer of skin of other sites with unspecified severity; I50.9 Heart failure, unspecified; B95.2 Enterococcus as the cause of diseases classified elsewhere; I48.91 Unspecified atrial fibrillation; N18.9 Chronic kidney disease, unspecified; E11.22 Type 2 diabetes mellitus with diabetic chronic kidney disease; D63.8 Anemia in other chronic diseases classified elsewhere; I83.018 Varicose veins of right lower extremity with ulcer other part of lower leg; Z20.828 Contact with and (suspected) exposure to other viral communicable diseases; Z79.4 Long term (current) use of insulin; Z79.01 Long term (current) use of anticoagulants; Z86.711 Personal history of pulmonary embolism; Z86.010 Personal history of colon polyps; Z99.81 Dependence on supplemental oxygen
CPT/HCPCS: 10080; 10195; 50010; 50101; 50366; 50386; 50403; 50643; 57119; 57120; 62110; 62900; 70005

== ENCOUNTER → 2020-02-09 | Outpatient (CLI) | payer OTHER ==
[~2020-02-09] MED LIST changes: +LEVAQUIN 500 M500 M1 PO
== END ==
LOC: HYPER 08:13
DX: T81.31XD Disruption of external operation (surgical) wound, not elsewhere classified, subsequent encounter (principal); E10.622 Type 1 diabetes mellitus with other skin ulcer; L98.492 Non-pressure chronic ulcer of skin of other sites with fat layer exposed; I87.2 Venous insufficiency (chronic) (peripheral); E83.59 Other disorders of calcium metabolism; E10.22 Type 1 diabetes mellitus with diabetic chronic kidney disease; I13.0 Hypertensive heart and chronic kidney disease with heart failure and stage 1 through stage 4 chronic kidney disease, or unspecified chronic kidney disease; I50.9 Heart failure, unspecified; N18.3 Chronic kidney disease, stage 3 (moderate); E10.40 Type 1 diabetes mellitus with diabetic neuropathy, unspecified; M10.9 Gout, unspecified; E78.5 Hyperlipidemia, unspecified; I48.91 Unspecified atrial fibrillation; G47.33 Obstructive sleep apnea (adult) (pediatric); L40.50 Arthropathic psoriasis, unspecified; E66.01 Morbid (severe) obesity due to excess calories; Z68.43 Body mass index [BMI] 50.0-59.9, adult; F32.9 Major depressive disorder, single episode, unspecified; Y83.8 Other surgical procedures as the cause of abnormal reaction of the patient, or of later complication, without mention of misadventure at the time of the procedure

== ENCOUNTER 2020-02-26 10:45 | Inpatient (IN) | payer OTHER ==
[~2020-02-26] VITALS: Ht 175.3 cm; Wt 159.1 kg
[~2020-02-26 10:45] MED LIST changes: -ACIDOPHILUS LA1 EAC1 PO; -MAGNESIUM400 MG PO; -PLAQUENIL200 MG PO; -POTASSIUM20 PO; -ZESTRIL5 MG PO
[2020-02-26 10:47] VITALS: BP 146/74
[2020-02-26] MEDS ORDERED: ACIDOPHILUS LA1 EAC1 PO (11:18)
[2020-02-26] MEDS ORDERED: ZESTRIL5 MG PO (11:19)
[2020-02-26] MEDS ORDERED: PLAQUENIL200 MG PO (11:19)
[2020-02-26] MEDS ORDERED: MAGNESIUM400 MG PO (11:20)
[2020-02-26] MEDS ORDERED: POTASSIUM20 PO (11:22)
[2020-02-26 11:33] LABS: ABSOLUTE NEUTROPHILS 7.4 thou/uL (1.4-8.2); BASOPHILS 0.8 % (0.0-2.0); EOSINOPHILS 3.5 % (0.0-3.0); HEMOGLOBIN 9.3 gm/dL (14.0-18.0); MCHC 33.3 g/dL (28.0-37.0); MCV 96.3 fL (80.0-100.0); MONOCYTES 7.3 % (1.0-8.0); PLATELET COUNT 191 thou/uL (150-400); POLYS 78.4 % (36.0-66.0); RBC 2.91 mil/uL (4.50-6.00); RDW 15.3 % (10.5-14.5); WBC 9.4 thou/uL (4.0-11.0)
[2020-02-26 11:36] LABS: CALCIUM 9.4 mg/dL (8.5-10.1); CREATININE 1.3 mg/dL (0.7-1.3); POTASSIUM 3.6 mmol/L (3.5-5.1)
[2020-02-26 11:42] LABS: ALBUMIN 2.6 g/dL (3.4-5.0); TOTAL BILIRUBIN 0.8 mg/dL (0.2-1.0); TOTAL PROTEIN 8.8 g/dL (6.4-8.2)
[2020-02-26 13:25] VITALS: BP 141/43
[2020-02-26 13:40] VITALS: BP 138/64
[2020-02-26 14:25] VITALS: BP 176/112
[2020-02-26 20:30] VITALS: BP 105/21
--- NOTE | 2020-02-27 03:34 | NUR ---
PT TRANSFERRED FROM 458 AT ABOUT SHIFT CHANGE. ALERT AND ORIENTED. UP AD JOHNATHAN. DRSG TO PANNUS AREA IN PLACE, THOSE TO HIS CARMEN FEET WERE REINFORCED. COVID TEST DONE PREOP. HE IS NPO AFTER MIDNOC FOR DEBRIDEMEMNT OF HIS WOUNDS.NORBERT LEMA. AFEBRILE. PAIN WELL MANAGED WITH HYDROCODONE.ON 3L/NC W/A, USES HOME CPAP AT [facility].CALLS APPROPRIATELY.
[2020-02-27 04:15] VITALS: BP 115/63
[2020-02-27 06:22] LABS: HEMATOCRIT 23.6 % (42.0-52.0); HEMOGLOBIN 7.8 gm/dL (14.0-18.0); MCH 31.9 pg (26.0-34.0); MCHC 32.9 g/dL (28.0-37.0); MCV 96.9 fL (80.0-100.0); RBC 2.44 mil/uL (4.50-6.00); RDW 15.4 % (10.5-14.5)
[2020-02-27 06:36] LABS: CALCIUM 8.4 mg/dL (8.5-10.1); POTASSIUM 3.9 mmol/L (3.5-5.1)
[2020-02-27 07:22] VITALS: BP 113/71
--- NOTE | 2020-02-27 09:31 | NUR ---
ASSESSMENT: CM REVIEWED CHART AND SPOKE WITH PATIENT. PT WAS ADMITTED FOR NON-HEALING WOUNDS. PT HAS ABDOMINAL WOUND AND RIGHT FOOT WOUND. PT WAS ADMITTED FROM HOME WHERE HE WAS IN SERVICES WITH [employer] [facility]. PT LIVES IN AN APT WITH HIS BROTHER. PT REPORTS NOT HAVING ANY STEPS. PT REPORTS THAT HE AMBULATES INDEPENDENTLY BUT AT TIMES WILL USE A WALKING STICK. PT REPORTS HE HAS NO SHOWER CHAIR OR GRAB BARS BUT STATES ALOT OF TIME HE JUST DOES A SPONGE BATH. PT REPORTS HE HAS NOT BEEN TO A SNF IN THE PAST BUT IS INTERESTED IN GOING POST DISCHARGE SO HE CAN GET HELP WITH HIS WOUNDS AND SOME THERAPY. PT REQUESTED TO HAVE REFERRAL SENT TO [facility]. CM NOTIFIED UTILIZATION MANAGEMENT NURSE TO PLEASE SEND REFERRAL. PLANS ARE FOR PATIENT TO LIKELY GO TO THE OR WEDNESDAY FOR DEBRIDEMENT/BIOPSY/POSSIBLE GRAFT. CM WILL CONTINUE TO FOLLOW TO ASSIST NEEDED.
--- NOTE | 2020-02-27 09:52 | NUR ---
Notification of pt with nonhealing wounds. Torso wounds due to to calciphylaxis and also bilateral foot wounds. Hx DM, CHF, HTN, and extreme class III obesity, BMI 51.8. BG controlled. Pt reports at one time weighed over 400 lb and now usually weighs 225-250 lb which fluctuates due to fluids/CHF/diuretic need. Eats high protein foods and also uses Premier Protein drinks bid at home. NPO for I/D today but will add Ensure Max 160cal/30g protein once diet readvanced. Provided pt with several coupons to purchase for home, comparible to Premier. Low nutrition risk
--- NOTE | 2020-02-27 13:29 | NUR ---
FAXED REFERRAL TO [facility] SPOKE WITH ABHIJIT IN ADM SHE RECEIVED REFERRAL STILL NEED THERAPY NOTES TO BE FAXED PT GOING FOR I/D TODAY WILL F/U WIT FACILITY TOMORROW.
[2020-02-27 15:35] VITALS: BP 97/63
--- NOTE | 2020-02-27 17:23 | HC ---
[facility] [place] [address] CONSULTATION Name: VINOD LAW Room #: 437-P ADM IN .R.#: [id number] Admission: 02/26/20 Attend Phys: Kingsley Hermosillo MD Discharge: Date of : 64 Report #: [id number] THIS REPORT FOR: cc: Lovely Aden MD, Lovely Valdivia,Javi Pantoja MD ~ CC: Kingsley Aden DATE OF SERVICE: 02/27/2020 CHIEF COMPLAINT: Multiple abdominoperineal ulcerations due to calciphylaxis. HISTORY OF PRESENT ILLNESS: This is a 59-year-old male patient with whom I am familiar from both outpatient evaluation as well as previous hospitalization. The patient has a history of longstanding ulcerations to his trunk and perineal region due to calciphylaxis. He has repeatedly developed cellulitis to the area. He was seen as an outpatient yesterday and had had increased drainage, sloughy material present, but also had an interval development of ulcerations on both of his feet at the base of the fifth metatarsals bilaterally. He is uncertain as to when those showed up, but feels that they were recent and may have occurred while during a recent hospitalization while at [facility]. The patient states that he feels that he is a little bit volume overloaded. He states that he is about 10-15 pounds over his normal weight. His wounds have been previously debrided. He has a reported diagnosis of calciphylaxis; although, I have never seen a pathology report specifically despite having requested such. He has a history of Enterococcus on his previous cultures and due to progressive deterioration of his ulcers and abdominal wall cellulitis as well as the new ulcerations on his feet, he is admitted for further evaluation and treatment. PAST MEDICAL HISTORY: Positive for morbid obesity, type 2 diabetes mellitus, atrial fibrillation, congestive heart failure, history of pulmonary emboli and recent development of calciphylaxis. He has had some mild renal insufficiency, but certainly he has nonoliguric renal issues. SOCIAL HISTORY: The patient drinks a beer about once a week. Denies tobacco use. FAMILY HISTORY: Noncontributory. MEDICATIONS: Include allopurinol, Lipitor, Coreg, famotidine, enoxaparin, gabapentin, hydrocodone, Zestril, Zosyn, torsemide. ALLERGIES: No known drug allergies. [address] [address] CONSULTATION Name: VINOD LAW Isidoro Room #: 437-P [facility] IN ..#: [id number] Admission: 02/26/20 Attend Phys: Kingsley Hermosillo MD Discharge: Date of : 64 Report #: [id number] FAMILY HISTORY: Noncontributory. REVIEW OF SYSTEMS: CONSTITUTIONAL: The patient denies fever, but complains of mild chills. Denies recent weight loss. NEUROLOGICAL: The patient denies focal weakness, numbness or tingling. EYES: The patient denies visual changes, redness, or drainage. ENT: The patient denies earache, nasal drainage, sore throat. CARDIOVASCULAR: The patient denies chest pain, palpitations or diaphoresis. PULMONARY: The patient denies cough or shortness of breath. GASTROINTESTINAL: The patient denies nausea or vomiting. He has pain across his mid abdomen due to the multiple ulcerations present. GENITOURINARY: Denies frequency. Denies urgency. Denies dysuria. ORTHOPEDIC: The patient complains of some swelling and ulceration to the pretibial regions bilaterally, as the bases of both feet. Other systems in a 14-point review of systems are negative. PHYSICAL EXAMINATION: VITAL SIGNS: At this time include blood pressure 113/71, pulse 102, respiratory rate 20, temperature 98.2. GENERAL: This is a chronically ill-appearing male patient who appears to be in mild discomfort. HEENT: Head normocephalic. Nose and throat clear. NECK: Supple. LUNGS: Clear. HEART: Irregular without murmur. ABDOMEN: Soft. There is tenderness; however, across the lower portion of his abdomen and pannus. There are multiple ulcerations across the midsection. They are deeper and larger on the right side of the midline than on the left side. On the left side, most areas have a dry eschar and they remain relatively superficial. On the right side, they are covered with slough. There is significant surrounding redness to all areas. He also has a smaller ulceration on the perineal region anteriorly that has progressively gotten larger since his last visit. EXTREMITIES: Lower extremities demonstrate the pretibial superficial venous type ulcerations, likely secondary to volume overload and then he has dry eschar on the base of the fifth metatarsal on the right and a blister in a similar location on the left. NEUROLOGIC: The patient is alert and oriented and appropriate. LABORATORY DATA: Include white blood cell count 8.0 with a hemoglobin of 7.8, hematocrit 23.6. Sodium 135, potassium is 3.9, chloride 99, CO2 of 33, BUN 29, creatinine 1.0, glucose of 119, calcium is 8.4. CLINICAL IMPRESSION: 1. Multiple abdominal wall ulcerations due to calciphylaxis by history. [address] [address] CONSULTATION Name: VINOD LAW Room #: 437-P ADM IN [place]#: [id number] Admission: 02/26/20 Attend Phys: Kingsley Hermosillo MD Discharge: Date of : 64 Report #: [id number] 2. Abdominal wall cellulitis. 3. Lower extremity venous type ulcerations to the legs bilaterally. 4. Diabetic type ulcerations to the lateral feet bilaterally as described above. 5. Type 2 diabetes mellitus. 6. History of atrial fibrillation. 7. Morbid obesity. RECOMMENDATIONS: At this point in time, the patient has been seen by Infectious Disease. He will be started empirically on antibiotic therapy. I have consulted Surgery for additional surgical debridement ____ requested debridement of both feet as well as tissue for surgical pathology from the abdominal wall ulcerations to once again help establish or confirm his diagnosis of calciphylaxis. I think it would be worthwhile to initiate him again on sodium thiosulfate for the underlying calciphylaxis. We will also check a parathyroid hormone level. The patient is agreeable to current plan of care. At this point in time, he is agreeable to a halfway facility or rehab facility postdischarge and we have briefly discussed the possibility of going to [facility] as a possible option. <ELECTRONICALLY SIGNED> By: Javi Valdivia MD 02/27/20 1723 1353 [id number] Javi Valdivia MD /nt
[2020-02-27 18:15] LABS: CALCIUM 8.6 mg/dL (8.5-10.1); CREATININE 1.3 mg/dL (0.7-1.3); PHOSPHORUS 2.7 mg/dL (2.5-4.9)
--- NOTE | 2020-02-27 18:45 | NUR ---
ASSUMED PATIENT CARE AT 0715, AXO 4. PATIENT ADMITTED FOR WOUND CARE. MULTIPLE WOUNDS AROUND THE BOTTOM PART OF STOMACH, LEFT SIDE OF LEG, BACK. WAS ON NPO SINCE YESTERDAY MIDNIGHT UNTILL TODAY 1130 FOR PROCEDURE 9WOUND DEBRIDEMENT). THEN THE PROCEDURE WAS CANCELLED DOCTOR NOT AVAILABLE UNTILL TOMORROW. ON CARB CONTROL DIABETIC DIET. PATIENT IS ON CPAP FROM HOME FOR NOC SLEEP APNEA. 3L/O2/NC. LBM YESTERDAY. CALL LIGHT IN REACH, BED IN LOW POSITION, PATIENT WILL CALL FOR HELP AND PAIN MEDS. WILL CONT TO MONITOR.
[2020-02-27 19:09] VITALS: BP 128/63
[2020-02-28 04:20] VITALS: BP 102/49
--- NOTE | 2020-02-28 05:00 | NUR ---
PT WAS OBSERVED LYING IN BED RESTING AND WATCHING TV AT START OF SHIFT.PT C/O PAIN ON ABD,MANAGED WITH MED.PT'S WOUND ON HIS ABDOMEN AND BACK REINFORCED.DRSG TO HIS R HEEL DONE.PT UP ADLIB IN ROOM.PT NPO SINCE CO FOR I&D LATER IN THE DAY.PT SLEEPING WITH HIS HOME CPAP IN HIS ROOM.CALL LIGHT WITHIN REACH.
[2020-02-28 05:30] LABS: HEMATOCRIT 21.7 % (42.0-52.0); HEMOGLOBIN 7.3 gm/dL (14.0-18.0); MCH 32.3 pg (26.0-34.0); MCHC 33.5 g/dL (28.0-37.0); MCV 96.4 fL (80.0-100.0); RBC 2.25 mil/uL (4.50-6.00); RDW 15.4 % (10.5-14.5); WBC 6.6 thou/uL (4.0-11.0)
[2020-02-28 05:51] LABS: CALCIUM 8.3 mg/dL (8.5-10.1); CREATININE 1.3 mg/dL (0.7-1.3); POTASSIUM 3.5 mmol/L (3.5-5.1)
[2020-02-28 08:05] VITALS: BP 100/55
--- NOTE | 2020-02-28 13:27 | NUR ---
ON-GOING ASSESSMENT: CM REVIEWED CHART AND SPOKE WITH PATIENT. PT IS TO HAVE HIS DEBRIDEMENT TODAY. STILL AWAITING PT TO WORK WITH PT/OT. [facility] IS FOLLOWING PATIENT AND NEEDED PT/OT ONCE PT IS ABLE TO PARTICIPATE. CM WILL CONTINUE TO FOLLOW TO ASSIST NEEDED.
[2020-02-28 16:40] VITALS: BP 143/69
[2020-02-28 19:55] VITALS: BP 116/68
--- NOTE | 2020-02-28 20:28 | NUR ---
ASSUMED PATIENT CARE AT 0715. PT ALERT X ORIENTED X4. PATIENT IS INDEPENDENT, GOES TO BATHROOM SELF. ACHS, CARB CONTROL DIET. PATIENT HAD PROCEDURES DONE FOR HIS WOUNDS ON LOWER ABDOMEN. WOUND VAC IN PLACE, AND DRESSINGS ON FOOT. PAIN MANAGED BY PAIN MEDS. IV RIGHT FORE ARM. USE CPAP FOR SLEEP APNEA. 0N 3L/O2/NC. CALL LIGHT WITHIN REACH. WILL CALL FOR HELP.
--- NOTE | 2020-02-29 04:38 | NUR ---
ASSESSMENT: PT REMAIN ALERT AND ORIENT TIMES FOUR. PT DOES WELL WITH WALKING TO THE BR. WOUND VAC TO RIGHT LOWER ABDOMEN; INTACT AND OPERATING WITH OUT DIFFICULT. BILATERAL FEET DRESSING INTACT. LEFT ABD DRESSING LOOSE AND HAS BEEN REINFORCED, MIN AMOUT OF DRAINAGE NOTED. VSS, AFEBRILE. STATE THAT MOST PAIN IS DERIVED FROM ABD INCISION. HYDORCODONE GIVEN FOR PAIN WITH PARTIAL RELIEF. TOLERATING CPAP WHILE ASLEEP. 3 LITERS OF 02 DURING THE DAY. RIGHT FOREARM IV INTACT AND PATENT. UP WITH SBA TO BP. DOES NOT WANT TO USE BSC. STEADY GAIT WHEN AMBULATING. SLOW PROGRESS TOWARDS DC GOALS, WILL CONTINUE TO MONITOR.
[2020-02-29 06:06] LABS: CALCIUM 8.7 mg/dL (8.5-10.1); CREATININE 1.3 mg/dL (0.7-1.3); POTASSIUM 3.3 mmol/L (3.5-5.1)
[2020-02-29 06:08] LABS: HEMATOCRIT 24.2 % (42.0-52.0); HEMOGLOBIN 8.2 gm/dL (14.0-18.0); MCH 32.3 pg (26.0-34.0); MCHC 33.8 g/dL (28.0-37.0); MCV 95.7 fL (80.0-100.0); RBC 2.53 mil/uL (4.50-6.00); RDW 15.5 % (10.5-14.5); WBC 9.4 thou/uL (4.0-11.0)
[2020-02-29 08:05] VITALS: BP 104/60
--- NOTE | 2020-02-29 14:38 | NUR ---
on-going assessment: cm reviewed chart and spoke with attending. pt IS PROGRESSING TOWARDS D/C GOALS. CM REQUESTED DC AWNING HANGER HELPER TO SEND WOUND CARE NOTES WELL PT/OT TO [facility] AND HAVE THEM SUBMIT FOR INSURANCE AUTH. CM WILL CONTINUE TO FOLLOW TO ASSIST NEEDED.
--- NOTE | 2020-02-29 14:41 | NUR ---
FAXED TODAY'S THERAPY PT/OT NOTES TO [facility] SPOKE WITH ABHIJIT IN ADM SHE RECEIVED AND WILL SUBMIT FOR AUTH. DP TO FOLLOW.
[2020-02-29 17:00] VITALS: BP 123/71
[2020-02-29 19:17] VITALS: BP 125/98
--- NOTE | 2020-02-29 20:00 | NUR ---
PT A&OX4, VSS, GENERALIZED PAIN. ALL DRESSINGS CHANGED. WOUND VAC APPROPRIATE, 125 MMHG, DRESSING INTACT. PAIN MEDICATION GIVEN. PATIENT REMAINS ON 3L O2 NC, CPAP AT NIGHT. NO SIGNS OF DISTRESS. WILL CONTINUE TO MONITOR.
--- NOTE | 2020-03-01 02:06 | NUR ---
ASSUMED PT CARE AT APPROXIMATELY 1900. PT IS ALERT AND ORIENTED X4. WOUND DRESSINGS TO FEET AND ABDOMEN ARE DRY AND INTACT. REINFORCED WITH SILK TAPE. THERE IS NO DRAINAGE AT THIS TIME. THE WOUND VAC CONNECTED TO THE LOWER RIGHT SIDE OF ABDOMEN WAS LEAKING. THIS WAS REINFORCED WITH A TRANSPARENT DRESSING. PT COMPLAINED OF PAIN TO LOWER ABDOMEN. PRN OXYCODONE WAS GIVEN. PT IS CURRENTLY SLEEPING. WILL CONTINUE TO MONITOR.
[2020-03-01 04:37] VITALS: BP 96/51
[2020-03-01 07:22] VITALS: BP 91/53
--- NOTE | 2020-03-01 12:09 | NUR ---
ON-GOING ASSESSMENT: PATRICK REVIEWED CHART. [facility] IS SEEKING AUTH AND AWAITING DECISION. PATRICK SPOKE WITH ATTENDING AND WOUNDCARE AND PLAN IS FOR PATIENT TO CONTINUE WITH HIS WOUND VAC HERE OVER THE WEEKEND AND POSSIBLE DISCHARGE ON WEDNESDAY TO SNF IF INSURANCE AUTH IS RECEIVED. PATRICK REQUESTED [employer] TO SEND UPDATES TO [facility]. CM UPDATED PT AND HE IS AGREEABLE WITH PLAN.
[2020-03-01 15:19] VITALS: BP 104/49
--- NOTE | 2020-03-01 19:38 | NUR ---
ASSUMED PT CARE AT 0715. PTX AXO X4. ACHS, IV RT FA, CPAP WITH 3L/O2. HAS WOUND VAC ON RT LOWER ABD, SLIKIGHT LEAKING NOTICE TOWARDS THE END OF THE SHIFT, TAPED WELL. DRESSING CHANGE DONE TO ALL WOUNDS. GENTAMYCINDRESSING FRM TOMORROW FOR WOUNDS ON THE FOOT. PT INDEPENDENT. PAIN CONTROLLED BY PAIN MEDS. CALL LIGHT IN REACH, BED IN LOW POSITION, PATIENT WILL CALL FOR HELP. PT IS COMMUNICATING HIS COND WITH HIS FAMILY.
[2020-03-01 19:45] VITALS: BP 114/62
--- NOTE | 2020-03-02 00:06 | NUR ---
ASSUMED PT CARE AT APPROXIMATELY 1900. PT WOUND DRESSINGS ARE DRY AND INTACT. PT C/O PAIN AND PRN OXYCODONE GIVEN. PT ACCIDENTLY PULLED OUT IV WITH CATHETER INTACT. BLEEDING WAS CONTROLLED. IV REPLACED TO THE LEFT SHOULDER. PT IS CURRENTLY RESTING IN HIS BED. WILL CONTINUE TO MONITOR. CALL LIGHT WITHIN REACH.
[2020-03-02 03:45] VITALS: BP 126/58
[2020-03-02 08:24] VITALS: BP 140/106
[2020-03-02 18:01] VITALS: BP 114/61
--- NOTE | 2020-03-02 20:10 | NUR ---
VSS-AFEBRILE. CPAP WITH 3L WHEN SLEEPING AND NAPPING. ALL WOUND DRESSINGS CHANGED, TOLERATED WELL. BM X 2. CALLS FOR ASSISTANCE.
[2020-03-02 20:40] VITALS: BP 138/48
[2020-03-03 04:00] VITALS: BP 144/81
--- NOTE | 2020-03-03 04:00 | NUR ---
VERY PLEASANT AND COOPERATIVE GENTLEMAN. PAIN WELL CONTROLLLED WITH ORAL PAIN MEDS. UP AD JOHNATHAN WELL. WOUND VAC IN PLACE AND WORKING RIGHT @ 125MMHG.AFEBRILE.WOUND DRSG TO PANNUS AND FLANK AREA INTACT. PT USUALLY ON . AT NOC HE TOLERATES CPAP WELL TO KEEP SATS ABOVE 92%.
[2020-03-03 07:16] LABS: HEMATOCRIT 21.7 % (42.0-52.0); HEMOGLOBIN 7.2 gm/dL (14.0-18.0); MCH 31.8 pg (26.0-34.0); MCHC 33.1 g/dL (28.0-37.0); MCV 95.9 fL (80.0-100.0); RBC 2.26 mil/uL (4.50-6.00); RDW 15.4 % (10.5-14.5); WBC 5.8 thou/uL (4.0-11.0)
[2020-03-03 07:25] LABS: CREATININE 1.4 mg/dL (0.7-1.3); POTASSIUM 3.2 mmol/L (3.5-5.1)
[2020-03-03 07:34] VITALS: BP 104/59
[2020-03-03 14:30] VITALS: BP 100/54
--- NOTE | 2020-03-03 18:31 | NUR ---
VSS-AFEBRILE. LUNGS CLEAR/ROOM AIR. CPAP WITH 3L BLEED WHEN RESTING OR SLEEPING. ALL WOUNND CARE DONE THIS SHIFT, AND DRESSINGS CHANGED. OOB WITH SBA TO USE THE RESTROOM, TWO BOWEL MOVEMENTS THIS SHIFT. PARTIAL PAIN RELIEF NOTED WITH PO PAIN MEDICATION. CALLS APPROPRIATELY FOR ANY NEEDED ASSISTANCE.
[2020-03-03 19:29] VITALS: BP 106/63
--- NOTE | 2020-03-04 03:34 | NUR ---
PT AMBULATING TO BATHROOM INDEPENDENTLY AND IS TOLERATING FAIR. PERCOCET PROVIDING PAIN RELIEF. RESTING COMFORTABLY. NO NEEDS VOICED. CALL LIGHT WITHIN REACH. FREQUENT OBSERVATION.
[2020-03-04 04:37] VITALS: BP 108/50
[2020-03-04 05:32] LABS: HEMOGLOBIN 7.2 gm/dL (14.0-18.0); MCH 31.8 pg (26.0-34.0); MCHC 32.8 g/dL (28.0-37.0); RBC 2.27 mil/uL (4.50-6.00); RDW 15.6 % (10.5-14.5)
[2020-03-04 05:49] LABS: CALCIUM 8.5 mg/dL (8.5-10.1); CREATININE 1.4 mg/dL (0.7-1.3); POTASSIUM 3.3 mmol/L (3.5-5.1)
[2020-03-04 08:31] VITALS: BP 126/73
--- NOTE | 2020-03-04 13:09 | PATH ---
[facility] [address] [place] [address] PATHOLOGY RPT PROCEDURE Name: JAMES LAW Isidoro Room #: 437-P ADM IN M.R.#: [id number] Admission: 02/26/20 Date of : 64 Discharge: Report #: [id number] Path Case #: [id number] [facility] Accession Number: [id number] . 01 Material submitted: . groin - RIGHT PUBIC WOUND. Modifiers: right . 01 Clinical history: . Nonhealing wounds. . 02 Diagnosis: Soft tissue "right pubic wound", debridement: - Subcutaneous tissue with marked acute inflammation, necrosis, and abundant calcium deposits within subcutaneous vessels, with associated thrombi, consistent with calciphylaxis. - Negative for malignancy. (MLK/db; 03/01/2020) LBQ 03/04/2020 1255 Local . 02 Electronically signed: . Rowena Youssef MD, Pathologist NPI- [id number] . 01 Gross description: . Received in formalin labeled "James Law, right pubic wound rule out calciphylaxis" is an unoriented portion of rogers-guzman necrotic soft tissue or possible skin and underlying yellow-guzman lobulated soft tissue measuring 4.0 x 2.4 x 1.5 cm. The specimen is serially sectioned to reveal no obvious areas of calcification. Cane Loader tissue is submitted in A1-A2. ([facility]; 02/29/2020) [facility] 02/29/2020 1332 Local . 02 Pathologist provided ICD-10: M79.9 . 02 CPT . 075488 Specimen Comment: A courtesy copy of this report has been sent to [phone] Specimen Comment: [phone], Specimen Comment: Report sent to ,DR COUGHLIN / DR ALEXANDRE Performed at: [address], [place] [id number] MD Fab Harry MD Phone: [phone] Performed at: [address] [address] PATHOLOGY RPT PROCEDURE Name: JAMES LAW Room #: 437-P ADM IN M.R.#: [id number] Admission: 02/26/20 Date of : 64 Discharge: Report #: [id number] Path Case #: [id number] [address] [place], [place] [id number] MD Callie Clemons MD Phone: [phone]
--- NOTE | 2020-03-04 15:02 | NUR ---
ON-GOING ASSESSMENT: CM CHECKED [facility] VM THIS AM AND THERE WAS A VM FROM FRIDAY 03/02 STATING THAT PHYSICIAN WAS UNABLE TO MAKE A DETERMINATION FOR SNF AND WANTING TO SPEAK WITH OUR PHYSICIAN BY 430 THAT DAY. CM DID NOT RECEIVED THIS VM UNTIL TODAY 03/04 IN THE AM AND DID NOT RECEIVE ANY CALL FROM [facility] STATING THIS INFORMATION. CM REACHED BACK OUT TO [employer] [phone] OPT 5 A PEER TO PEER WAS OFFERED BY 1630 ON 03/02 AND CM REQUESTED THAT WE COULD DO THIS LORE TODAY. [employer] STATING PEER TO PEER IS NO LONGER AN OPTION AND AN APPEAL WOULD HAVE TO BE COMPELTED BY CALLING . CM CONTACTED THIS NUMBER AND IT WAS AUTOMATED STATING TO EITHER MAIL IN AN APPEAL TO [employer] [address] [address] [facility] [address] OR ONE COULD BE COMPLETED ONLINE AT [facility]/DENIAL. CM COMPLETED THE ONLINE APPEAL AND IT STATED IT COULD TAKE UP TO 72 HOURS TO HEAR A RESPONSE. CM UPDATED PATIENT ON THE SITUATION. CM WILL CONTINUE TO FOLLOW TO ASSIST NEEDED.
[2020-03-04 15:48] VITALS: BP 127/66
--- NOTE | 2020-03-04 16:23 | NUR ---
WOUND CARE F/U; I AM HERE TODAY TO APPLY VAC THERAPY TO THREE ABDOMINAL WOUNDS. THE WOUNDS HAD NO ODOR ALTHOUGH THE SKIN SUBSTITUTES WERE BEGINNING TO DISCOLOR. THE PATIENT WAS GIVEN PAIN MEDICATION BEFORE AND TOLERATED THE DRESSING CHANGE WELL. THERE ARE RIGHT LATERAL AND LEFT LATERAL WOUNDS CONSITANT WITH CHACOT DEFORMITY. THE RIGHT IS WORSE THAT THE LEFT WITH NECROSIS IN THE WOUND BED. THE LEFT IS AN UNSTABLE BLISTER. I COVERED THE WOUNDS WITH FOAM DRESSINGS, THE RIGHT SECURED WITH KERLIX. DISCUSSED WITH ITZEL
[2020-03-04 19:20] VITALS: BP 102/60
--- NOTE | 2020-03-04 19:50 | NUR ---
ASSUMED PT CARE AT 0715. PT ALERTX ORIENTED X 4. PATIENT PAIN CONTROLLED BY PAIN MEDS. INDEPENDENT, AMBULATES TO THE BATHROOM SELF, WILL CALL FOR HELP IF NEEDED. IV ON LF FORE ARM WITH ANTIBIOTICS RUNNING. WOUND DRESSING CHANGED TODAY. CALL LIGHT WITHIN REACH. PATIENT COMMUNICATING HIS COND WITH FAMILY. PATIENT CHECKED EVERY HOUR. PT WILL CALL FOR HELP.
--- NOTE | 2020-03-05 02:30 | NUR ---
ASSUMED CARE AT 1900. A/O X4. WOUND VAC INTACT. ALL OTHER WOUND DRESSINGS INTACT WITH NO DRAINAGE NOTED. PRN PAIN MEDICATION GIVEN DIRECTED. PROGRESSING TOWARDS PLAN OF CARE GOALS, WILL CONTINUE TO MONITOR.
[2020-03-05 04:00] VITALS: BP 144/88
[2020-03-05 09:26] VITALS: BP 113/68
--- NOTE | 2020-03-05 09:58 | NUR ---
Followup; Wound care treatement continues to multiple abdominal wounds, and bilateral foot wounds. Hx calciphylaxix and diabetes. Eating 80-100% of meals and drinking Ensure Max. Physician has indicated moderate protein calorie malnutrition: RD will defer. Continues low nutrition risk with appropriate nutrition interventions in place.
--- NOTE | 2020-03-05 14:58 | NUR ---
ON-GOING ASSESSMENT: CM ATTEMPTED TO CONTACT [employer] [phone] TO GET AN UPDATE ON THE EXPITED APPEAL. CM WAS THEN DIRECTED BY [employer] TO CALL [phone]. ONCE THEY ANSWERED CM WAS THEN DIRECTED TO CALL [phone] [employer] FOR AN UPDATE ON APPEAL. CM WAITED ON HOLD FOR 42 MINS IN ATTEMPTS TO GET AN UPDATE AND THEY STATED THAT THE EXPITED APPEAL IS STILL PENDING AND THEY DO NOT HAVE A DETERMINATION AT THIS TIME BUT A DECISION WILL BE MADE BY 03/07/20. CM NOTIFIED PATIENT WELL ATTENDING.
--- NOTE | 2020-03-05 16:21 | NUR ---
ASSUMED PT CARE AT 0715, PT ALERT X ORIENTED X4. PAIN OF WOUNDS ON THE LOWER ABDOMEN PARTIALLY CONTROLLED BY PAIN MEDS. PT INDEPENDENT, AMBULATES TO BATHROOM SELF. DRESSING CHANGE DONE TODAY. BED IN LOW POSITION, CALL LIGHT WITHIN REACH, PT WILL CALL FOR HELP. PT COMMUNICATING WITH THE FAMILY ABOUT HIS CONDITION. WILL CONT TO MONITOR.
[2020-03-05 17:27] VITALS: BP 118/48
[2020-03-05 20:45] VITALS: BP 121/63
--- NOTE | 2020-03-05 23:49 | NUR ---
PT NICE AND COOPERATIVE. HE RECEIVED SOME BAD NEWS TODAY OF SISTER PASSING AND HE JUST WANTED TO BE LEFT ALONE AND DID NOT WANT TO TALK MUCH. NEW IV PLACED TO RFA AND IV ABTS INFUSED. WOUNDS TO PANNUS, CARMEN FLANK AND CARMEN FEET WITH DRSG C/D/I. WOUND VAC IN PLACE TO R SIDE OF STOMACH AND WORKING OKAY @125MMHG. PT IS UP AD JOHNATHAN. SUGARS IN OKAY RANGE. PO MEDS WORKING FOR HIS PAIN. NYSTATIN TO GROIN AREA, LOOKS RED BUT NO OPEN AREAS.PROGRESSING TOWARDS CARE GOALS.
[2020-03-06 03:43] VITALS: BP 115/68
[2020-03-06 06:52] LABS: HEMATOCRIT 22.4 % (42.0-52.0); HEMOGLOBIN 7.5 gm/dL (14.0-18.0); MCH 31.9 pg (26.0-34.0); MCHC 33.3 g/dL (28.0-37.0); MCV 95.7 fL (80.0-100.0); RBC 2.34 mil/uL (4.50-6.00); RDW 15.6 % (10.5-14.5); WBC 6.6 thou/uL (4.0-11.0)
[2020-03-06 06:58] LABS: CALCIUM 8.8 mg/dL (8.5-10.1); CREATININE 1.4 mg/dL (0.7-1.3); POTASSIUM 3.3 mmol/L (3.5-5.1)
[2020-03-06 07:30] VITALS: BP 97/51
--- NOTE | 2020-03-06 08:12 | NUR ---
PATRICK RECEIVED A VM ON DESK PHONE THIS AM THAT WAS FROM LAST NIGHT 03/05 AT 930PM STATING THAT IS WAS JOSIE FROM [employer] CALLING ABOUT THE EXPEDITED APPEAL STATING THAT IT WAS INVALID DUE TO THEM NEEDING THE AUTHORIZED SENIOR POLICY ANALYST FORM COMPLETED AND FAXED TO THEM AT [phone]. SHE STATED IF I NEEDED A FORM I COULD CALL HER AT [phone] AND SHE COULD FAX A FORM. PATRICK CONTACTED HER AT 0810 STATING THAT I ALREADY FAXED IN THIS FORM AND HAVE A CONFIRMATION FAX THAT IT WENT THROUGH ON 03/04. I HAVE TWO CONFIRMATION FAXES I FAXED THIS FORM IN TWICE ON 03/04. I LEFT A VM STATING THIS AND TO CONTACT ME IMMEDIATELY. SHE ALSO REQUESTED UPDATED CLINICAL IN THE PAST 72 HOURS THAT BE FAXED TO HER AT [phone]. CM FAXED UPDATED CLINICAL AND WAITING ON A RETURN CALL.
--- NOTE | 2020-03-06 13:22 | NUR ---
on-going assessment: cm reviewed chart. PT REPORTS HE HEARD FROM INSURANCE REGARDING HIS APPEAL FOR SNF AND HE STATES IT WAS APPROVED. CM HAS NOT HEARD BACK FROM INSURANCE AT THIS TIME NOR HAS ATTENDING. PATRICK REACHED OUT TO ABHIJIT CARD AT [facility] WHO REPORTS SHE WAS NOTIFIED THAT THEY HAVE APPROVAL TO ACCEPT PT TODAY. CM NOTIFIED ATTENDING WHO IS WORKING ON DISCHARGE ORDERS. CM SPOKE WITH PATIENT AND HE IS AGREEABLE WITH PLAN. CM NOTIFIED WOUND CARE TEAM. CHART COPY WAS ORDERED. PATRICK SPOKE WITH ABHIJIT CARD AT [facility] WHO REPORTS THEY WANT TO PICK PATIENT UP AT 4-430PM. CM NOTIFIED BEDSIDE RN AND PATIENT OF TIME. CM NOTIFIED BEDSIDE RN THE NUMBER FOR REPORT. PT WILL HAVE A BARIARTIC WHEELCHAIR FOR TIME OF DISCHARGE. CM IS AWAITING FINAL DISCHARGE ORDERS TO SEND TO FACILITY.
--- NOTE | 2020-03-06 13:55 | NUR ---
ASSUMED PT CARE AT 0700. PT ALERT X ORIENTED X 4. PATIENT IS INDEPENDENT, AMBULATES SELF. IV ON RT FOREARM. PAIN CONTROLLED BY PAIN MEDS. WOUND VAC REMOVED. WOUNDS CLEANED, PICTURE TAKEN AND WOUND DRESIINGS DONE. CALL LIGHT WITHIN REACH, BED IN LOW POSITION, PT WILL CALL FOR HELP. PT IS COMMUNICATING WITH FAMILY. WILL CONT TO MONITOR
[2020-03-06] MEDS ORDERED: SODIUM THI IV (15:22)
[2020-03-06] MEDS ORDERED: GENTAMICIN SULF15 GM TOP (15:27)
--- NOTE | 2020-03-06 18:05 | NUR ---
VAT CONSULTED FOR A PICC FOR LT ABX. PT CONSENTED AND A 4FRSLPICC PLACED LUABASILIC. PLEASE SEE INSERTION NI FOR DETAILS
[2020-03-06 19:29] LABS: FOLIC ACID 19.5 ng/mL (8.6-58.9)
[2020-03-06 19:40] VITALS: BP 113/70
--- NOTE | 2020-03-07 03:27 | NUR ---
ASSESSMENT COMPLETED. PT CONTINUES TO BE UP AD JOHNATHAN IN ROOM WITH A PLEASANT ATTITUDE. DRSG TO CARMEN FLANK AREAS CHANGED. PT IS AFEBRILE. GIVEN PAIN MEDS FOR PAIN TO WOUND SITES. PT DOING FINE ON CPAP AT 02 @2L.LOOKING FORWARD TO D/C TOMORROW. NO FURTHER CONCERNS.
[2020-03-07 04:20] VITALS: BP 115/65
[2020-03-07 06:21] LABS: HEMOGLOBIN 6.9 gm/dL (14.0-18.0)
[2020-03-07 06:24] LABS: HEMATOCRIT 20.7 % (42.0-52.0); MCH 31.8 pg (26.0-34.0); MCHC 33.4 g/dL (28.0-37.0); MCV 95.3 fL (80.0-100.0); RBC 2.17 mil/uL (4.50-6.00); RDW 15.3 % (10.5-14.5); WBC 6.3 thou/uL (4.0-11.0)
[2020-03-07 06:48] LABS: CALCIUM 8.6 mg/dL (8.5-10.1); CREATININE 1.2 mg/dL (0.7-1.3); MAGNESIUM 1.5 mg/dL (1.8-2.4); PHOSPHORUS 3.2 mg/dL (2.5-4.9); POTASSIUM 3.2 mmol/L (3.5-5.1)
[2020-03-07 07:48] VITALS: BP 112/71
[2020-03-07 08:53] VITALS: BP 112/71
[2020-03-07 08:53] LABS: HEMATOCRIT 22.9 % (42.0-52.0); HEMOGLOBIN 7.6 gm/dL (14.0-18.0); MCH 31.5 pg (26.0-34.0); MCV 95.4 fL (80.0-100.0); RBC 2.4 mil/uL (4.50-6.00); RDW 15.2 % (10.5-14.5); WBC 6.1 thou/uL (4.0-11.0)
--- NOTE | 2020-03-07 10:21 | NUR ---
on-going assessment: PATRICK RECEIVED A CALL LAST EVENING AROUND 1615 STATING PATIENT STILL NEEDING TO GET PICC LINE PLACED AND TO PUSH BACK DISCHARGE TRANSPROTATION. PATRICK CALLED [facility] AND STATED DUE TO TIME WE WOULD HAVE TO SCHEDULE DISCHARGE TODAY 03/07/20. PATRICK SPOKE WITH DR. ELIZALDE TODAY WHO STATES PATIENT IS CLEAR TO DISCHARGE. PATRICK NOTIFIED ABHIJIT CARD AT [facility] [place]. CHART COPY IS ORDERED AND PATRICK NOTIFIED EXERCISE SCIENTIST. PATRICK NOTIFIED BEDSIDE RN AND GAVE HER THE NUMBER FOR REPORT. TRANSPORTATION IS ARRANGED FOR 1130. CM NOTIFIED BEDSIDE RN AND PT. DISCHARGE ORDERS AND NEGATIVE [facility]
--- NOTE | 2020-03-07 11:31 | NUR ---
ASSUMED CARE OF THE PT AT 0700. PT IS AMBULATORY AND USES A WALKER. R UPPER PICC INTACT AND SEEN BY IV NURSE. WOUNDS WERE CHANGED THE PREVIOUS SHIFT, PT WANTED TO WAIT UNTIL HE WENT TO FACILITY TO HAVE THEM CHANGED AND LOOK AT. 3.0 L BIPAP. CALL LIGHT WITHIN REACH, BED IN LOWEST POSITION. REPORT CALL TO [facility]. PAIN CONTROLLED BY PAIN MEDS, SEE EMAR. WILL CONTINUE TO MONITOR THE PT.
== END 2020-03-07 11:51 | DRG 853 ==
LOC: ER 10:45 → EROBS 13:14 → 4W 13:14 → 4S 13:14 → 4W 13:58 → 4S 20:02
PROVIDERS: Emergency Medicine; Emergency Medicine Emergency Medical Services; Internal Medicine; ADMIT Hospitalist; ATTEND Hospitalist
PROC: 0JBQ0ZZ Excision of Right Foot Subcutaneous Tissue and Fascia, Open Approach (ICD-10-PCS; principal; 2020-02-28)
PROC: 5A09357 Assistance with Respiratory Ventilation, Less than 24 Consecutive Hours, Continuous Positive Airway Pressure (ICD-10-PCS; principal; 2020-02-28)
PROC: 0JB80ZZ Excision of Abdomen Subcutaneous Tissue and Fascia, Open Approach (ICD-10-PCS; principal; 2020-02-28)
PROC: 5A09457 Assistance with Respiratory Ventilation, 24-96 Consecutive Hours, Continuous Positive Airway Pressure (ICD-10-PCS; 2020-02-29)
PROC: 5A09357 Assistance with Respiratory Ventilation, Less than 24 Consecutive Hours, Continuous Positive Airway Pressure (ICD-10-PCS; 2020-03-03)
PROC: 5A09457 Assistance with Respiratory Ventilation, 24-96 Consecutive Hours, Continuous Positive Airway Pressure (ICD-10-PCS; 2020-03-04)
PROC: 02H633Z Insertion of Infusion Device into Right Atrium, Percutaneous Approach (ICD-10-PCS; 2020-03-06)
DX: A41.9 Sepsis, unspecified organism (principal); E43 Unspecified severe protein-calorie malnutrition; L97.909 Non-pressure chronic ulcer of unspecified part of unspecified lower leg with unspecified severity; L97.908 Non-pressure chronic ulcer of unspecified part of unspecified lower leg with other specified severity; L03.311 Cellulitis of abdominal wall; Z68.43 Body mass index [BMI] 50.0-59.9, adult; I13.0 Hypertensive heart and chronic kidney disease with heart failure and stage 1 through stage 4 chronic kidney disease, or unspecified chronic kidney disease; L98.499 Non-pressure chronic ulcer of skin of other sites with unspecified severity; R10.817 Generalized abdominal tenderness; I50.9 Heart failure, unspecified; E66.01 Morbid (severe) obesity due to excess calories; I48.91 Unspecified atrial fibrillation; N18.9 Chronic kidney disease, unspecified; G47.33 Obstructive sleep apnea (adult) (pediatric); T81.89XA Other complications of procedures, not elsewhere classified, initial encounter; E11.621 Type 2 diabetes mellitus with foot ulcer; E83.59 Other disorders of calcium metabolism; E11.22 Type 2 diabetes mellitus with diabetic chronic kidney disease; E78.5 Hyperlipidemia, unspecified; E65 Localized adiposity; D63.8 Anemia in other chronic diseases classified elsewhere; Z20.828 Contact with and (suspected) exposure to other viral communicable diseases; Z86.711 Personal history of pulmonary embolism; Z79.899 Other long term (current) drug therapy
CPT/HCPCS: 10102; 27000; 50010; 50101; 50366; 50386; 50403; 50643; 51412; 56524; 57119; 57120; 57138; 57143; 62110; 62900; 70005

== ENCOUNTER → 2020-02-26 | Outpatient (CLI) | payer OTHER ==
[~2020-02-26] MED LIST changes: +ACIDOPHILUS LA1 EAC1 PO; +MAGNESIUM400 MG PO; +PLAQUENIL200 MG PO; +POTASSIUM20 PO; +ZESTRIL5 MG PO
== END ==
LOC: HYPER 09:08
DX: T81.31XD Disruption of external operation (surgical) wound, not elsewhere classified, subsequent encounter (principal); E10.621 Type 1 diabetes mellitus with foot ulcer; L97.511 Non-pressure chronic ulcer of other part of right foot limited to breakdown of skin; L97.521 Non-pressure chronic ulcer of other part of left foot limited to breakdown of skin; E10.622 Type 1 diabetes mellitus with other skin ulcer; L97.811 Non-pressure chronic ulcer of other part of right lower leg limited to breakdown of skin; L97.821 Non-pressure chronic ulcer of other part of left lower leg limited to breakdown of skin; L98.492 Non-pressure chronic ulcer of skin of other sites with fat layer exposed; L84 Corns and callosities; E83.59 Other disorders of calcium metabolism; E83.50 Unspecified disorder of calcium metabolism; E10.40 Type 1 diabetes mellitus with diabetic neuropathy, unspecified; E10.22 Type 1 diabetes mellitus with diabetic chronic kidney disease; E66.01 Morbid (severe) obesity due to excess calories; I48.91 Unspecified atrial fibrillation; I87.2 Venous insufficiency (chronic) (peripheral); I13.0 Hypertensive heart and chronic kidney disease with heart failure and stage 1 through stage 4 chronic kidney disease, or unspecified chronic kidney disease; N18.3 Chronic kidney disease, stage 3 (moderate); I50.9 Heart failure, unspecified; I89.0 Lymphedema, not elsewhere classified; R60.0 Localized edema; E78.5 Hyperlipidemia, unspecified; L40.50 Arthropathic psoriasis, unspecified; G47.33 Obstructive sleep apnea (adult) (pediatric); K74.60 Unspecified cirrhosis of liver; M35.3 Polymyalgia rheumatica; M19.90 Unspecified osteoarthritis, unspecified site; M10.9 Gout, unspecified; F32.9 Major depressive disorder, single episode, unspecified; Z68.43 Body mass index [BMI] 50.0-59.9, adult; Y83.8 Other surgical procedures as the cause of abnormal reaction of the patient, or of later complication, without mention of misadventure at the time of the procedure

== ENCOUNTER 2020-03-30 16:16 | Inpatient (IN) | payer OTHER ==
[~2020-03-30] VITALS: Ht 175.3 cm; Wt 154.7 kg
[~2020-03-30 16:16] MED LIST changes: +ACIDOPHILUS LA1 EAC1 PO; +GENTAMICIN SULF15 GM TOP; +MAGNESIUM400 MG PO; +PLAQUENIL200 MG PO; +POTASSIUM20 PO; +SODIUM THI IV; +ZESTRIL5 MG PO
[2020-03-30 16:17] VITALS: BP 139/68
[2020-03-30 17:18] LABS: HEMATOCRIT 20.4 % (42.0-52.0); HEMOGLOBIN 6.8 gm/dL (14.0-18.0); LYMPHOCYTES 6.7 % (24.0-44.0); MCHC 33.4 g/dL (28.0-37.0); RBC 2.16 mil/uL (4.50-6.00); WBC 8.8 thou/uL (4.0-11.0)
[2020-03-30 17:19] LABS: BASOPHILS 0.9 % (0.0-2.0); EOSINOPHILS 3.7 % (0.0-3.0); MCH 31.6 pg (26.0-34.0); MCV 94.4 fL (80.0-100.0); MONOCYTES 9.6 % (1.0-8.0); PLATELET COUNT 151 thou/uL (150-400); POLYS 79.1 % (36.0-66.0); RDW 16.1 % (10.5-14.5)
[2020-03-30 17:26] LABS: CALCIUM 8.8 mg/dL (8.5-10.1); CREATININE 1.6 mg/dL (0.7-1.3); POTASSIUM 3.1 mmol/L (3.5-5.1)
[2020-03-30 17:32] LABS: APTT 45.3 Seconds (24.5-32.8); INR 1.3; PROTIME 13.8 Seconds (9.3-11.4)
[2020-03-30 18:26] VITALS: BP 115/64
[2020-03-30 18:32] VITALS: BP 135/78
[2020-03-30 19:41] VITALS: BP 105/88
[2020-03-31 01:07] VITALS: BP 118/72; BP 121/70; BP 124/72; BP 129/73; BP 131/73
--- NOTE | 2020-03-31 08:39 | NUR ---
Pt admitted at 1845 from ED. A/OX4, VSS, Up with SBA/RW. 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 Pt received 1 Unit of PRBC w/o adverse reactions. C/o abd/flank pain, medicated with [place] per EMAR with relief reported. Computer system won't let admission charting to be saved as required;reassessment documented. Pt resting quietly w/o distress;oxygen on at 3L/NC. Fall precautions in place,calls approp.
[2020-03-31 09:08] LABS: HEMATOCRIT 20.3 % (42.0-52.0); HEMOGLOBIN 6.8 gm/dL (14.0-18.0); MCH 31.3 pg (26.0-34.0); WBC 9.3 thou/uL (4.0-11.0)
[2020-03-31 09:09] LABS: MCHC 33.7 g/dL (28.0-37.0); MCV 92.8 fL (80.0-100.0); RBC 2.18 mil/uL (4.50-6.00); RDW 16.7 % (10.5-14.5)
[2020-03-31 09:10] VITALS: BP 143/81
[2020-03-31 09:17] LABS: CALCIUM 8.7 mg/dL (8.5-10.1); CREATININE 1.3 mg/dL (0.7-1.3)
[2020-03-31 16:30] VITALS: BP 143/88
--- NOTE | 2020-03-31 18:30 | NUR ---
PT ASSESSED AT START OF SHIFT. UNCOMFORTABLE IN BED AND CHAIR SO CHANGING POSITIONS FREQUENTLY. DR. RODRIGUEZ HERE TO SEE PT WOUNDS AND ORDERS RECEIVED. AMBULATES W/ WALKER TO BR AND HAD 2 BMS. SON BROUGHT IN PT CPAP. EATING AND DRINKING OK. PLAN FOR EGD IN AM.
[2020-03-31 20:15] VITALS: BP 114/60
[2020-04-01 03:26] LABS: HEMATOCRIT 21.4 % (42.0-52.0); MCH 30.5 pg (26.0-34.0); MCHC 32.6 g/dL (28.0-37.0); MCV 93.5 fL (80.0-100.0); RBC 2.29 mil/uL (4.50-6.00); RDW 16.9 % (10.5-14.5); WBC 9.5 thou/uL (4.0-11.0)
[2020-04-01 03:39] LABS: CALCIUM 8.8 mg/dL (8.5-10.1); CREATININE 1.3 mg/dL (0.7-1.3); MAGNESIUM 1.5 mg/dL (1.8-2.4)
[2020-04-01 03:41] LABS: POTASSIUM 2.8 mmol/L (3.5-5.1)
--- NOTE | 2020-04-01 05:31 | NUR ---
ASSUMED CARE OF PT AT 1900. PT IS A/O X4. WOUND CARE COMPLETED WITH WOUND CLEANSER ORDERED. PT C/O PARTIAL PAIN RELIEF WITH ORDERED PAIN MEDICATION PRESCRIBED. CALLED FIRE HAZARD INSPECTOR AND WAS GIVEN ORDERS FOR A ONE TIME DOSE OF PAIN MEDICATION. [facility] NOTIFIED FIRE HAZARD INSPECTOR AND RECEIVED ORDERS. ORDERS COMPLETED. PT STATED HIS PAIN LEVEL HAS DECREASED. PT IS NOW CURRENTLY IN HIS BED AND APPEARS TO BE SLEEPING. CALL LIGHT IS WITHIN REACH. WILL CONTINUE TO MONITOR
[2020-04-01 07:38] VITALS: BP 122/73
--- NOTE | 2020-04-01 13:10 | NUR ---
Nutrition: Assessed due to documentation of wounds, plus BMI > 40 at 50.3 kg/m2 per CBW 341#. This is high risk, class III Obesity. Pt has been seen before by previous RD's. NPO now, awaiting EGD. Visited pt this morning. He declined any education needs for weight or DM II hx. 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 RD shifted focus to prioritizing good nutrition and protein needs. Pt replies, "every one says that, but why can't I have a protein drink"? RD recommended 2 options: Ensure MAX or Glucerna. Settled on Ensure MAX to achieve high protein intake, but jones goals of keeping CHO extremely low and calories low to prevent wt gain. Pt in full agreement. Will start Ensure MAX BID, spaced apart at breakfast/dinner once diet safe to resume. Pt very interested in lots of fruits/vegetables, particularly cold meat chef salad. Low nutrition risk.
[2020-04-01 16:22] VITALS: BP 107/51
[2020-04-01 20:16] VITALS: BP 130/79
--- NOTE | 2020-04-01 20:49 | NUR ---
Assumed pt care this am, covid test done for prep for EGD that was postponed to shahnaz am as per GI. Bowel prep done, commode at the bedside. Wound care and dressing changes done. Pain managed with medication, POC followed. To be NPO midnight onwards. endorsedtothe night nurse.
[2020-04-02 04:07] VITALS: BP 120/32
--- NOTE | 2020-04-02 05:09 | NUR ---
ASSUMED PT CARE AROUND 1930. AXOX4. INDEPENDENT WITH ADLs. WOUND CARE REDONE. PT CONTS TO HAVE LOOSE STOOL FROM BOWEL PREP. KEPT NPO POST MN FOR PROCEDURE IN AM. BP 130/32 REPORTED TO SOLITARIO GARZA. NO S/S ACUTE DISTRESS NOTED OR REPORTED AT THIS TIME. WILL CONT TO MONITOR FOR ANY CHANGES IN CONDITION.
[2020-04-02 05:53] LABS: HEMATOCRIT 24.8 % (42.0-52.0); HEMOGLOBIN 8.2 gm/dL (14.0-18.0); MCHC 32.9 g/dL (28.0-37.0); MCV 94.2 fL (80.0-100.0); RBC 2.64 mil/uL (4.50-6.00); RDW 16.8 % (10.5-14.5); WBC 9.4 thou/uL (4.0-11.0)
[2020-04-02 05:55] LABS: CALCIUM 8.7 mg/dL (8.5-10.1); CREATININE 1.4 mg/dL (0.7-1.3); MAGNESIUM 1.6 mg/dL (1.8-2.4); POTASSIUM 3.4 mmol/L (3.5-5.1)
[2020-04-02 06:22] VITALS: BP 128/41
--- NOTE | 2020-04-02 13:30 | P ---
[facility] [place] [address] PROCEDURE REPORT Name: VINOD LAW Room #: 464-P ADM IN M.R.#: [id number] Admission: 03/30/20 Attend Phys: Nash Helton MD Discharge: Date of : 64 Report #: [id number] THIS REPORT FOR: cc: RADHA - No family physician/PCP FAM - No family physician/PCP Kun Allison MD ~ CC: [facility] physician/PCP Nash Helton BRIEF HISTORY: The patient is a 59-year-old male who has anemia. He has multiple comorbidities including chronic infections and chronic kidney disease, which make him risk for anemia of chronic illness; however, he does have a Hemoccult-positive stool. PREOPERATIVE DIAGNOSES: Anemia and Hemoccult-positive stools. POSTOPERATIVE DIAGNOSES: Antral gastritis versus gastric antral vascular ectasias. MEDICATIONS: Deep sedation with propofol per Anesthesia. SPECIMEN: Biopsies of antrum, gastritis versus gastric antral vascular ectasias. ESTIMATED BLOOD LOSS: 3 mL. PROCEDURE: EGD with biopsy. FINDINGS: Prior to propofol sedation, procedure of upper endoscopy discussed with the patient as well as potential risks and its complications. He indicates he understands and desires to proceed. DESCRIPTION OF PROCEDURE: With the patient in left lateral decubitus position, the Olympus video endoscope was inserted in the cervical esophagus under direct vision without difficulty. Examination of this organ through its entire length revealed normal esophageal mucosa down to the squamocolumnar junction. The mucosa of the squamocolumnar junction was unremarkable. There was no evidence of ulcers or bleeding lesions. Hiatus hernia was not seen. The scope was advanced into the stomach, which was examined on end view as well as retroflexed views. There was no blood in the stomach. There was a pattern of what appeared to be gastritis; however, on closer inspection, these may be vascular ectasias. It was difficult to determine endoscopically. There was no evidence of active bleeding. No ulcers or erosions were seen. Multiple biopsies were obtained. Upon retroflexion, no mass lesions were seen. The mucosa in the proximal stomach was unremarkable. The pylorus was unremarkable. Duodenal bulb was unremarkable. No ulcers were seen. The postbulbar duodenal sweep down to the third portion was unremarkable. At that point, the scope was slowly withdrawn [address] [address] PROCEDURE REPORT Name: THANHVINOD Isidoro Room #: 464-P [facility] IN .R.#: [id number] Admission: 03/30/20 Attend Phys: Nash Helton MD Discharge: Date of : 64 Report #: [id number] and careful circumferential views confirmed the above findings. The patient tolerated the procedure well. DISPOSITION: The patient with anemia and Hemoccult-positive stools. He may have vascular antral ectasias. We will follow up on biopsies. Proceed with colonoscopy at this point in time. We will make further recommendations after review of the path report. <ELECTRONICALLY SIGNED> By: Kun Allison MD 04/02/20 1330 1134 1143 Kun Allison MD /nt
--- NOTE | 2020-04-02 13:30 | P ---
[facility] [place] [address] PROCEDURE REPORT Name: VINOD LAW Room #: 464-P ADM IN M.R.#: [id number] Admission: 03/30/20 Attend Phys: Nash Helton MD Discharge: Date of : 64 Report #: [id number] THIS REPORT FOR: cc: ARDHA - No family physician/PCP RADHA - No family physician/PCP Kun Allison MD ~ CC: [facility] physician/PCP Nash Helton BRIEF HISTORY: The patient is a 59-year-old male with a history of anemia and Hemoccult-positive stools. PREOPERATIVE DIAGNOSES: Anemia and Hemoccult-positive stools. POSTOPERATIVE DIAGNOSES: Anemia and Hemoccult-positive stools. MEDICATIONS: Deep sedation per Anesthesia. SPECIMEN: None. ESTIMATED BLOOD LOSS: None. PROCEDURE: Incomplete colonoscopy secondary to poor prep. FINDINGS: Prior to sedation, procedure of colonoscopy was discussed with the patient as well as potential risks and its complications. He indicates he understands and desires to proceed. DESCRIPTION OF PROCEDURE: With the patient in left lateral decubitus position, digital examination was completed, which revealed no abnormalities. Subsequently, the Olympus video colonoscope was introduced into the rectum, advanced under direct vision. There was liquidy stool material. Initially, I thought we could clean up this material, but as I advanced the scope it became more copious and we started to encounter particulate material clogged in the channel of the scope. We got to I believe the splenic flexure and distal transverse colon and the volume became more copious with more particulate material and it was felt at that point that we would not be able to obtain an adequate exam today. Scope was withdrawn. The patient tolerated the attempted procedure well. DISPOSITION: The patient with anemia and Hemoccult-positive stools. [facility] [address] [place] [address] PROCEDURE REPORT Name: LAWVINOD Room #: 464-P ADM IN M.R.#: [id number] Admission: 03/30/20 Attend Phys: Nash Helton MD Discharge: Date of : 64 Report #: [id number] Unfortunately, prep was not adequate for a complete colonoscopy. We will continue to prep at this point in time. <ELECTRONICALLY SIGNED> By: Kun Allison MD 04/02/20 1330 1153 1209 Kun Allison MD /nt
[2020-04-02 16:34] VITALS: BP 121/69
--- NOTE | 2020-04-02 16:54 | NUR ---
PT ADMITTED RELATED TO GI BLEED. CM REVIEWED CHART AND SPOKE WITH CARE TEAM. PT HAD BEEN AT [facility] PRIOR TO ADMISSION. CLINICAL UPDATE SENT TO FACILITY. THEY ARE ABLE TO ACCEPT ONCE MEDICALLY STABLE. ANTICIPATE THAT PT WILL STAY THERE LTC EVENTUALLY. CM TO FOLLOW INDICATED WITH DC PLANNING.
--- NOTE | 2020-04-02 20:30 | NUR ---
Assumed pt care this am, was on NPO, bowel prep cpmplered but not clear, tap enema done 2x as per order of GI. EGD done but colonoscopy is to be repeated tomorrow, pt refused and wants this done outpt. Pt requested for pain meds to be reviewed since these were not working, informed Dr. Dodge. Pt refused IV fluids since scroum is swollen, Dr. Dodge also aware. Pt preferred to have wound care done in the evening before bed time. POC followed, pain managed with medication., calls appropriately. Endorsed to the night nurse.
[2020-04-02 20:42] VITALS: BP 107/53
[2020-04-02 20:56] VITALS: BP 119/69
[2020-04-02 21:01] VITALS: BP 147/91
--- NOTE | 2020-04-03 05:59 | NUR ---
patient aox4 makes needs known. patient on bi pap at night. dressing done around midnight.wounds on abd, back and left foot have minimum drainage. patient ambulates to the bathroom with steady gaits. patient in bed asleep at this time breathing regular and unlaboured.
[2020-04-03 07:38] VITALS: BP 142/92
[2020-04-03 08:50] LABS: HEMOGLOBIN 7.1 gm/dL (14.0-18.0)
[2020-04-03 12:00] LABS: ABSOLUTE RETIC COUNT 0.0324 10^6/uL; OBSERVED RETIC COUNT 1.4 % (0.6-2.6)
--- NOTE | 2020-04-03 15:48 | NUR ---
PT HAVING TO HAVE REPEAT COLONOSCOPY CLEAN OUT HADN'T BEEN COMPLETE. CM FAXED CLINICAL UPDATES OVER TO [facility] AND ASKED THAT THEY SUBMIT FOR INSURANCE AUTH FOR PT TO RETURN IN THE NEXT 24-48 HRS. CM TO FOLLOW INDICATED WITH DC PLANNING.
--- NOTE | 2020-04-03 16:06 | PATH ---
[facility] [address] [place] [address] PATHOLOGY RPT PROCEDURE Name: LAWJAMES Room #: 464-P ADM IN M.R.#: [id number] Admission: 03/30/20 Date of : 64 Discharge: Report #: [id number] Path Case #: [id number] [facility] Accession Number: [id number] . 01 Material submitted: . stomach - BX OF ANTRUM . 01 Clinician provided ICD-10: D64.9 N17.9 . 01 Clinical history: . Anemia, GI bleed Gastritis versus vascular ectasia . 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 - Negative for active inflammation, intestinal metaplasia, dysplasia, and malignancy. - NEGATIVE for Helicobacter pylori organisms. (DAXA:thomas; 04/03/2020) QTP 04/03/2020 1510 Local . 02 Electronically signed: . Rowena Youssef MD, Pathologist NPI- [id number] . 01 Gross description: . The specimen is received in formalin, labeled "James Law, BX of antrum" and consists of multiple fragments of pink-guzman tissue measuring 0.6 x 0.3 x 0.2 cm in aggregate which are entirely submitted in A1. (JMF; 04/02/2020) JFQ/JFQ 04/02/2020 1731 Local . 02 Microscopic: . Immunohistochemical stain results (block A1) . - Helicobacter pylori - negative for organisms. . (MLK:pit; 04/03/2020) . 02 Pathologist provided ICD-10: D64.9, N17.9 . 02 CPT . [id number], [id number] [place] [address] PATHOLOGY RPT PROCEDURE Name: JAMES LAW Room #: 464-P [facility] IN [facility]#: [id number] Admission: 03/30/20 Date of : 64 Discharge: Report #: [id number] Path Case #: [id number] Specimen Comment: A courtesy copy of this report has been sent to [phone] Specimen Comment: [phone] Specimen Comment: Report sent to / DR GRIDER Performed at: 01 [facility] [address], [place], [place] [id number] MD Fab Harry MD Phone: [phone] Performed at: [address] [id number] MD Callie Clemons MD Phone: [phone]
[2020-04-03 16:10] VITALS: BP 127/75
--- NOTE | 2020-04-03 20:28 | NUR ---
PATIENT IS ALERT AND ORIENTED AND REFUSED COLONOSCOPY INDICATING WILL COMPLETE OUTPATIENT. PATIENT STATES THE LIDOCAINE IN THE WOUNDS GREATLY DECREASED PAIN DURING DRESSING CHANGE. PATIENT ABLE TO WALK SBA TO AND FROM BATHROOM. WOUND PICTURES TAKEN TODAY AND PLACED IN CHART. HEMATOLOGY/ONCOLOGY CONSULTED TODAY. PATIENT REQUESTED DIURETIC AND MD WAS NOTIFIED OF REQUEST. PATIENT MANAGES HIS BIPAP.
[2020-04-03 20:36] VITALS: BP 139/64
--- NOTE | 2020-04-04 03:59 | NUR ---
VSS-AFEBRILE. RESTED WELL THROUGH NIGHT WITH FEW NEEDS. MEDICATED PRN WITH PO PAIN MEDICATION AND IV MEDICATION FOR BREAKTHROUGH PAIN. OOB AD JOHNATHAN-STEADY ON FEET. CALLS APPROPRIATELY FOR ANY NEEDED ASSISTANCE.
[2020-04-04 07:08] LABS: HEMATOCRIT 23.3 % (42.0-52.0); HEMOGLOBIN 7.7 gm/dL (14.0-18.0); MCH 30.9 pg (26.0-34.0); MCHC 32.9 g/dL (28.0-37.0); MCV 93.8 fL (80.0-100.0); RBC 2.48 mil/uL (4.50-6.00); RDW 16.3 % (10.5-14.5); WBC 10.1 thou/uL (4.0-11.0)
[2020-04-04 07:29] LABS: % SATURATION 17 % (20-39); IRON 31 ug/dL (65-175); TIBC 180 ug/dL (250-450)
[2020-04-04 08:52] VITALS: BP 123/72
--- NOTE | 2020-04-04 13:30 | NUR ---
LIZ reviewed chart and spoke with nursing and attending physician. Pt is medically stable for discharge back to [facility]. Awaiting insurance authorization at this time. LIZ left voice message for Argelia, in admissions. SW notified that facility has submitted for authorization, and are waiting to hear back from the insurance. farm planner to fax updated clinical/therapy info and discharge orders/summary to facility. LIZ met with pt at bedside to discuss discharge plan. Pt is aware and in agreement with plan. Pt is hoping to discharge today. LIZ updated attending physician and nursing. Chart copy requested. LIZ is following to assist as needed with discharge planning.
--- NOTE | 2020-04-04 15:12 | NUR ---
Assumed pt care at 7am.Assessment completed.vss.Pt wanted to know when he will be dc to [facility] [place] today.Rn told pt that medical case worker will inform both rn and pt when dc completed.Dr Valdivia and Echo here,dc order noted but medical case worker was waiting for authorization clearance .Drsg intact to lower extremity and abdomen.Pt was upset when informed about possible late dc today. Pain med given as ordered with relief.Will continue to monitor.
[2020-04-04 15:34] VITALS: BP 132/59
[2020-04-04 19:45] VITALS: BP 108/62
--- NOTE | 2020-04-05 04:57 | NUR ---
VSS-AFEBRILE. RESTED WELL THROUGH NIGHT, ONLY REQUESTED PAIN MEDICATION FOR REPORTED BACK AND WOUND PAIN. TURNS SELF IN BED, CALLS APPROPRIATELY FOR ANY NEEDED ASSISTANCE. FALL PRECAUTIONS IN PLACE.
--- NOTE | 2020-04-05 07:22 | HC ---
[facility] [place] [address] CONSULTATION Name: VINOD LAW Room #: 464-P ADM IN M.R.#: [id number] Admission: 03/30/20 Attend Phys: Nash Helton MD Discharge: Date of : 64 Report #: [id number] THIS REPORT FOR: cc: FAM - No family physician/PCP FAM - No family physician/PCP Anthony Mccall MD ~ CC: SISSY Bravo MD [facility] physician/PCP RICHARD Helton MD DATE OF SERVICE: 04/04/2020 REQUESTING PHYSICIAN: Nash Helton M.D. HISTORY OF PRESENT ILLNESS: The patient is a very pleasant 59-year-old gentleman who has a history of chronic wounds and also has had a history of anemia at least our facility since 12/2019 with hemoglobin 8.9-7.6 type range. His lab is significant for a white count that was normal at 10.1 with normal differential. Platelets have been normal. Absolute retic count was inappropriately low at 0.03-0.04. Chemistries are notable for creatinine of 1.4 with fairly normal transaminases, AST 56, ALT 45, total bilirubin 0.8, LDH 188. Iron is 31, slightly low, TIBC 180, slightly low, percent saturation 17, low. C-reactive protein quite high at 217.6. Sed rate greater than 150. TSH 2.53. Ferritin 1375, folate 8.7. B12 . UA not done for some time and had trace blood in the past. PAST MEDICAL HISTORY: Notable for a number of things including obesity, chronic wounds, coronary artery disease, history of DVT, diabetes type 2, obstructive sleep apnea, hyperlipidemia. We will need to clarify some on his medication was hydroxychloroquine not sure that is about. MEDICATIONS: Currently include torsemide 20 daily, lidocaine patch, pantoprazole 40 daily, fentanyl 50 mcg p.r.n., OxyIR p.r.n., allopurinol 300 daily, carvedilol 6.25 b.i.d., duloxetine 60 daily, gabapentin 600 b.i.d., insulin on a sliding scale. FAMILY HISTORY: He says there is no history of blood disorder. 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 He had similar job in the past. [place] [address] CONSULTATION Name: VINOD LAW Room #: 464-P [facility] IN [facility].#: [id number] Admission: 03/30/20 Attend Phys: Nash Helton MD Discharge: Date of : 64 Report #: [id number] PHYSICAL EXAMINATION: GENERAL: The patient appears his stated age. VITAL SIGNS: Height is 5 feet 9, 175.3 cm. Weight is 341 pounds or 154.7 kilograms. Blood pressure is 123/72, O2 sat 98%, respirations 20, pulse 101, temperature 98.4. HEENT: Face is symmetrical. LUNGS: Without labored breathing. No rhonchi, rales, or stridor. HEART: Appears regular rate, though little bit difficult to hear given his body habitus. ABDOMEN: Quite obese. No definite masses. EXTREMITIES: Without clubbing, cyanosis. There is some trace edema. The patient does also have some skin changes consistent with his chronic wounds. ASSESSMENT AND PLAN: 1. Hypoproliferative and possibly iron deficiency anemia. Absolute retic is inappropriately low. We will check EPO level. Recent iron suggests he may also be a little bit on the low and we will give him 1 day of iron sucrose. Note that recent EGD showed some gastric antral vascular ectasias. Colonoscopy was incomplete with plans to repeat per GI, doubt that this is a bone marrow condition given white count and platelet count being normal. Also, doubt hemolysis with total bilirubin and liver functions being normal. 2. Chronic wounds. Defer meds to others. 3. Morbid obesity, encouraged calorie restriction. 4. Obstructive sleep apnea, CPAP. 5. History of coronary artery disease per others. 6. Deep venous thrombosis history, anticoagulation per others. 7. Diabetes type 2. Medications per others. 8. Hyperlipidemia. Medications per others. We will follow with you. <ELECTRONICALLY SIGNED> By: Anthony Mccall MD 04/05/20 0722 0937 Anthony Mccall MD /nt
[2020-04-05 07:52] VITALS: BP 116/63
--- NOTE | 2020-04-05 10:40 | NUR ---
RECEIVED WORD FROM [facility] THAT PEDIATRIC SPEECH THERAPIST IS REQUESTING MORE INFO TO APPROVE SNF & IS OFFERING A P-P TODAY. S.W. & DR YORK INFORMED. DR YORK CALLED [phone], OPT 5 & S/W MED. DIR & SNF WAS DENIED & INS REC HOME WITH HHERSVICES. NOTIFIED S.W.
[2020-04-05 13:06] VITALS: BP 116/63
--- NOTE | 2020-04-05 13:13 | NUR ---
DISCHARGE NOTE: LIZ reviewed chart and spoke with nursing and attending physician. Pt's insurance denied SNF authorization after peer to peer with attending physician. Recommendation made for pt to return with services. Pt notified and is agreeable with plan to discharge home today with Nikia . Pt has used [facility] in the past. SW faxed clinical info and discharge orders to HH. Spoke with Alessandra in intake to notify of HH referral and pt's discharge. Pt will have transportation home later today. Contact info for HH placed in pt's discharge summary. LIZ notified Argelia at [facility] [place]. No additional SW needs identified at this time, but is available to assist should needs arise.
[2020-04-05 13:36] VITALS: BP 116/63
--- NOTE | 2020-04-05 16:36 | NUR ---
Assumed pt care at 7am.Pt in bed sound asleep with cpap on but arousable. Assessment completed.vss.Pt wanted to dc home today since insurance refused to approved dc to rehab.Dr Dodge notified, dc order noted.manager account management arranged for home health.Pt notified brother for tile picker.Dc summary compile and reviewed with pt.Rn wanted to change drsg and took picture at dc but pt refused.At 1430,pt dc home in [place] accompanied by finisher machine.
--- NOTE | 2020-04-05 17:09 | NUR ---
PT DISCHARGED TODAY TO HOME WAS NOTIFIED BY [facility] THAT THEY CANNOT TAKE PT INSURANCE OON. FAXED REFERRAL TO [facility] AND [facility] ARE GONE FOR THE DAY AND I WILL F/U WITH THEM ON Wednesday.
--- NOTE | 2020-04-07 12:00 | HC ---
[facility] [place] [address] CONSULTATION Name: VINOD LAW Room #: 464-P [facility] IN M.R.#: [id number] Admission: 03/30/20 Attend Phys: Nash Helton MD Discharge: 04/05/20 Date of : 64 Report #: [id number] THIS REPORT FOR: cc: RADHA - No family physician/PCP RADHA - No family physician/PCP Unruly Zavala MD ~ CC: [facility] physician/PCP Nash Helton DATE OF SERVICE: 03/31/2020 WOUND CARE CONSULTATION NOTE REASON FOR CONSULTATION: The patient admitted for anemia, hemoglobin 6.8, hematocrit 20.4; multiple calciphylaxis wounds of abdomen and trunk. The patient is well known to the wound care service. 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 Wound Care is consulted after the patient admitted for anemia, hemoglobin/hematocrit 6.8/20.4 of unknown etiology. We have treated so many times in the past with local wound care for his calciphylaxis wounds. PAST MEDICAL HISTORY: Morbid obesity, calciphylaxis, history of lower gastrointestinal bleed, diabetes mellitus type 2 with peripheral neuropathy, atrial fibrillation, chronic kidney disease. ALLERGIES: None known. MEDICATIONS: Include Pepcid, Coreg, Lipitor, metolazone, Vashe wound therapy, duloxetine, Demadex, Eliquis, allopurinol, [place], Neurontin, Zestril, Plaquenil, magnesium, potassium. REVIEW OF SYSTEMS: Anemia and weakness. PHYSICAL EXAMINATION: GENERAL: Shows an alert, pleasant gentleman, conversant and a good historian. HEENT: Mucous membranes are moist. NECK: Supple. ABDOMEN: Morbidly obese. Dressings are removed and the patient is found to have chronic calciphylaxis wounds of the right lower abdomen, measuring approximately 4 cm x 5 cm x 1.5 cm deep, 2 cm x 3 cm calciphylaxis wound of the right groin. Two calciphylaxis wounds of the left lower flank. One linear 5 cm long dry and crusted with a smaller 2 cm x 2 cm calciphylaxis wound with exudate. [address] [address] CONSULTATION Name: VINOD LAW Room #: 464-P [facility] IN M.R.#: [id number] Admission: 03/30/20 Attend Phys: Nash Helton MD Discharge: 04/05/20 Date of : 64 Report #: [id number] EXTREMITIES: Examination of the right flank also shows a small superficial calciphylaxis wound measuring approximately 2 cm x 3 cm with some superficial exudate. IMPRESSION: 1. Morbid obesity. 2. Diabetes mellitus type 2 with skin ulcers. 3. Anemia. 4. Moderate protein-calorie malnutrition. 5. Diabetes mellitus with peripheral neuropathy. 6. Chronic calciphylaxis wounds. PLAN: We will dress these wounds presently with 0.25% Dakin's packing to the wounds, covered with a dry dressing twice daily. Maximize nutrition. Wound care team will follow. <ELECTRONICALLY SIGNED> By: Unruly Zavala MD 04/07/20 1200 1236 [id number] Unruly Zavala MD /nt
[2020-04-08 11:14] VITALS: BP 116/63
[2020-04-08] MEDS ORDERED: NORCO 10-325 T1 EACH PO (13:01)
--- NOTE | 2020-04-08 15:11 | NUR ---
FOLLOWED UP WITH [facility] THEY CAN ACCEPT PT AND WILL SET UP VISIT FOR TOMORROW MORNING THEY WILL NOTIFY PT AND SCHEDULE TIME.
== END 2020-04-05 15:02 | disposition home or self-care (01) | DRG 377 ==
LOC: ER 16:16 → EROBS 18:27 → 4W 18:27
PROVIDERS: Emergency Medicine; Hospitalist; Nurse Practitioner; Nurse Practitioner Family; ADMIT Internal Medicine; ATTEND Internal Medicine
PROC: 30233N1 Transfusion of Nonautologous Red Blood Cells into Peripheral Vein, Percutaneous Approach (ICD-10-PCS; principal; 2020-03-31)
PROC: 0DB68ZX Excision of Stomach, Via Natural or Artificial Opening Endoscopic, Diagnostic (ICD-10-PCS; 2020-04-02)
PROC: 0DJD8ZZ Inspection of Lower Intestinal Tract, Via Natural or Artificial Opening Endoscopic (ICD-10-PCS; 2020-04-02)
PROC: 5A09457 Assistance with Respiratory Ventilation, 24-96 Consecutive Hours, Continuous Positive Airway Pressure (ICD-10-PCS; 2020-04-02)
DX: K29.71 Gastritis, unspecified, with bleeding (principal); N17.0 Acute kidney failure with tubular necrosis; D61.89 Other specified aplastic anemias and other bone marrow failure syndromes; E87.1 Hypo-osmolality and hyponatremia; E44.0 Moderate protein-calorie malnutrition; D62 Acute posthemorrhagic anemia; Z68.43 Body mass index [BMI] 50.0-59.9, adult; I13.0 Hypertensive heart and chronic kidney disease with heart failure and stage 1 through stage 4 chronic kidney disease, or unspecified chronic kidney disease; K31.811 Angiodysplasia of stomach and duodenum with bleeding; E83.59 Other disorders of calcium metabolism; I50.9 Heart failure, unspecified; L98.499 Non-pressure chronic ulcer of skin of other sites with unspecified severity; I48.91 Unspecified atrial fibrillation; G47.33 Obstructive sleep apnea (adult) (pediatric); E66.01 Morbid (severe) obesity due to excess calories; N18.9 Chronic kidney disease, unspecified; E11.42 Type 2 diabetes mellitus with diabetic polyneuropathy; E11.622 Type 2 diabetes mellitus with other skin ulcer; E78.5 Hyperlipidemia, unspecified; I25.10 Atherosclerotic heart disease of native coronary artery without angina pectoris; E87.6 Hypokalemia; E11.22 Type 2 diabetes mellitus with diabetic chronic kidney disease; D69.6 Thrombocytopenia, unspecified; E83.42 Hypomagnesemia; E11.621 Type 2 diabetes mellitus with foot ulcer; Z20.828 Contact with and (suspected) exposure to other viral communicable diseases; D63.8 Anemia in other chronic diseases classified elsewhere; Z79.899 Other long term (current) drug therapy; Z79.01 Long term (current) use of anticoagulants; Z86.718 Personal history of other venous thrombosis and embolism; Z86.711 Personal history of pulmonary embolism; Z86.010 Personal history of colon polyps
CPT/HCPCS: 10045; 62110; 62900; 70005

== ENCOUNTER → 2020-04-11 | Outpatient (CLI) | payer OTHER | LOC: HYPER 08:59 | DX: T81.31XD Disruption of external operation (surgical) wound, not elsewhere classified, subsequent encounter (principal); E10.622 Type 1 diabetes mellitus with other skin ulcer; L98.492 Non-pressure chronic ulcer of skin of other sites with fat layer exposed; E10.621 Type 1 diabetes mellitus with foot ulcer; L97.522 Non-pressure chronic ulcer of other part of left foot with fat layer exposed; L97.512 Non-pressure chronic ulcer of other part of right foot with fat layer exposed; R60.0 Localized edema; E83.59 Other disorders of calcium metabolism; I87.2 Venous insufficiency (chronic) (peripheral); I89.0 Lymphedema, not elsewhere classified; E10.40 Type 1 diabetes mellitus with diabetic neuropathy, unspecified; L84 Corns and callosities; I48.91 Unspecified atrial fibrillation; E10.22 Type 1 diabetes mellitus with diabetic chronic kidney disease; I13.0 Hypertensive heart and chronic kidney disease with heart failure and stage 1 through stage 4 chronic kidney disease, or unspecified chronic kidney disease; I50.9 Heart failure, unspecified; N18.3 Chronic kidney disease, stage 3 (moderate); M10.9 Gout, unspecified; L40.50 Arthropathic psoriasis, unspecified; K74.60 Unspecified cirrhosis of liver; G47.33 Obstructive sleep apnea (adult) (pediatric); E66.01 Morbid (severe) obesity due to excess calories; F32.9 Major depressive disorder, single episode, unspecified; Z68.43 Body mass index [BMI] 50.0-59.9, adult; Y83.8 Other surgical procedures as the cause of abnormal reaction of the patient, or of later complication, without mention of misadventure at the time of the procedure ==

== ENCOUNTER → 2020-04-18 | Outpatient (CLI) | payer OTHER ==
[~2020-04-18] MED LIST changes: +NORCO 10-325 T1 EACH PO
== END ==
LOC: HYPER 09:59
PROVIDERS: ATTEND Emergency Medicine
DX: T81.31XD Disruption of external operation (surgical) wound, not elsewhere classified, subsequent encounter (principal); E10.622 Type 1 diabetes mellitus with other skin ulcer; L98.492 Non-pressure chronic ulcer of skin of other sites with fat layer exposed; Y83.8 Other surgical procedures as the cause of abnormal reaction of the patient, or of later complication, without mention of misadventure at the time of the procedure